=== PATIENT | female | born 1980 | race Hispanic/Latino ===

== ENCOUNTER 2017-08-12 19:46 | Inpatient (IN) | payer OTHER ==
[~2017-08-12] VITALS: Ht 154.9 cm; Wt 51.9 kg
[~2017-08-12 19:46] MED LIST: AZELEX30 GM TOP; BACTRIM DS TAB1 EACH PO; CIPRO500 M1 PO; HALOBETASOL PRO15 G1 TOP; IBUPROFEN600 M1 PO; IBUPROFEN800 M1 PO; MOMETASONE FURO45 G1 TOP; RETIN-A20 GM TOP
--- NOTE | 2017-08-12 20:07 | ED GI/GU/ABDOMINAL COMPLAINT ---
History of Present Illness General Chief Complaint: General Adult Stated Complaint: PT HAS A PAIN ON THE LT SIDE GOING TO RT SIDE Vital Signs & Intake/Output Vital Signs & Intake/Output Vital Signs Date Time Temp Pulse Resp B/P B/P Pulse O2 O2 Flow FiO2 Mean Ox Delivery Rate 08/12 1958 96.9 91 20 102/70 Allergies Coded Allergies: oxycodone (From PERCOCET) (Intermediate, LOWERS BLOOD PRESSURE 12/09/15) nitrofurantoin (N/V/D 01/02/17) Reconcile Medications Azelaic Acid (Azelex) 20 % CREAM..G. 1 JOE TOP BID PRN ECZEMA (Reported) Ciprofloxacin HCl (Cipro) 500 MG TABLET 1 TAB PO BID kidney infection Halobetasol Propionate 0.05 % OINT...G. 1 JOE TOP AD PRN ECZEMA (Reported) Ibuprofen 600 MG TABLET 1 TAB PO TID pain with food Ibuprofen 800 MG TABLET 1 TAB PO TID pain Mometasone Furoate 0.1 % OINT...G. 1 JOE TOP AD PRN ECZEMA (Reported) apply to affected area(s) Tretinoin (Retin-A) 0.025 % CREAM..G. 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
--- NOTE | 2017-08-12 20:48 | ED GI/GU/ABDOMINAL COMPLAINT ---
History of Present Illness General Chief Complaint: General Adult Stated Complaint: PT HAS A PAIN ON THE LT SIDE GOING TO RT SIDE Source: patient, old records Exam Limitations: no limitations Vital Signs & Intake/Output Vital Signs & Intake/Output Vital Signs Date Time Temp Pulse Resp B/P B/P Pulse O2 O2 Flow FiO2 Mean Ox Delivery Rate 08/12 2122 68 18 92/60 100 Room Air 08/12 2120 Room Air 08/12 1958 96.9 91 20 102/70 Allergies Coded Allergies: oxycodone (From PERCOCET) (Intermediate, LOWERS BLOOD PRESSURE 12/09/15) nitrofurantoin (N/V/D 01/02/17) Reconcile Medications Ciprofloxacin HCl (Cipro) 500 MG TABLET 1 TAB PO BID kidney infection Ibuprofen 600 MG TABLET 1 TAB PO TID pain with food Triage Note: PER PT SEEN ON THURSDAY FOR PYELO, SAW DR ARREOLA TODAY AND HE SUGGESTS ME TO BE ADMITTED FOR IV ANTIBIOTICS, NOT FEELING ANY BETTER Triage Nurses Notes Reviewed? yes LMP (ages 10-50): date ([id number]) ? n Is pt currently ? No Onset: Last week Duration: day(s):, constant, continues in ED Timing: recent history Quality/Severity: aching, moderate Location: left flank Radiation: LLQ, RLQ Activities at Onset: none Prior Abdominal Problems: similar symptoms Past Sexual History: Unobtainable at this time No Modifying Factors: none Modifying Factors: Worsens With: urinating. Associated Symptoms: abdominal pain, dysuria, fatigue, loss of appetite, urinary frequency HPI: About 1 week prior to admission patient complains of left flank pain and urinary frequency painful urination anorexia. 5 days prior to admission she was evaluated diagnosed with pyelonephritis discharged with Cipro and Motrin. She does not feel any better with continued symptoms along with congestion and nonproductive cough. She denies fever chills nausea vomiting diarrhea chest pain shortness breath headache rash bleeding. Past History Travel History Traveled to [place] past 21 day No Medical History Any Pertinent Medical History? 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 No Review of Systems Review of Systems Constitutional: Reports: see HPI, malaise. EENTM: Reports: no symptoms. Respiratory: Reports: no symptoms. Cardiovascular: Reports: no symptoms. GI: Reports: no symptoms. Genitourinary: Reports: see HPI, dysuria, frequency, pain. Musculoskeletal: Reports: no symptoms. Skin: Reports: no symptoms. Neurological/Psychological: Reports: no symptoms. Hematologic/Endocrine: Reports: no symptoms. Immunologic/Allergic: Reports: no symptoms. All Other Systems: Reviewed and Negative Physical Exam Physical Exam General Appearance: well developed/nourished, alert, awake, mild distress Head: atraumatic, normal appearance Eyes: Bilateral: normal appearance, PERRL, EOMI, normal inspection. Ears, Nose, Throat, Mouth: hearing grossly normal, moist mucous membrane Neck: normal inspection, supple, full range of motion, normal alignment Respiratory: normal breath sounds, chest non-tender, no respiratory distress, quiet respiration, lungs clear Cardiovascular: regular rate/rhythm, normal peripheral pulses, norml femoral pulses equa Peripheral Pulses: 4+ carotid (R), 4+ carotid (L) Gastrointestinal: normal bowel sounds, soft, non-tender, no organomegaly Back: normal inspection, normal range of motion, no vertebral tenderness Extremities: normal range of motion, no ligament instability Neurologic/Psych: no motor/sensory deficits, awake, alert, oriented x 3, normal gait, normal mood/affect, 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 No Sepsis Present: No Sepsis Focused Exam Completed? No Progress Differential Diagnosis: UTI/pyelo Plan of Care: Orders Procedure Date/time Status Regular Diet 08/13 B Active Pathway - chart 08/12 2142 Active House Staff 08/12 2142 Active Code Status 08/12 2142 Active Intake & Output 08/12 2121 Active Patient Data 08/12 2040 Active OXYGEN SETUP (GEN) 08/12 2032 Active Saline Lock 08/12 2032 Active Admit to inpatient 08/12 2032 Active Vital Signs 06/06 2033 Active Activity/Ambulation 08/12 2032 Active Code Status 08/12 2032 Complete CULTURE,URINE 08/13 2023 Active BLOOD CULTURE 08/13 2023 Active URINE 08/13 2023 Complete URINALYSIS 08/13 2023 Complete LIPASE 08/13 2023 Complete COMPREHENSIVE METABOLIC PANEL 08/13 2023 Complete CBC WITHOUT DIFFERENTIAL 08/13 2023 Complete VTE Mechanical Prophylaxis 08/12 UNK Active Current Medications Sig/Alcides Start time Last Medication Dose Stop Time Status Admin Heparin Sodium 5,000 UNIT Q8 08/12 2199 UNVr (Porcine) Laboratory Tests 08/12/172130: Urinalysis LIGHT H, Urine Color YEL, Urine Clarity CLDY H, Urine pH 6.0, Ur Specific [place] >= 1.030, Urine Protein TRACE H, Urine Ketones NEG, Urine Nitrite NEG, Urine Bilirubin NEG, Urine Urobilinogen 0.2, Ur Leukocyte Esterase TRACE H, Ur Microscopic SEDIMENT EXAMINED, Urine RBC FEW H, Urine WBC 1-3 H, Ur Epithelial Cells MANY H, Urine Bacteria RARE H, Urine Mucus RARE, Urine Hemoglobin NEG, Urine Glucose NEG, Urine Test NEGATIVE 08/12/172045: Anion Gap 11, Estimated GFR > 60, BUN/Creatinine Ratio 11.4, Glucose 84, Calcium 9.0, Total Bilirubin 0.4, AST 201 H, ALT 319 H, Alkaline Phosphatase 272 H, Total Protein 6.8, Albumin 3.2 L, Globulin 3.6, Albumin/Globulin Ratio 0.9 L, Lipase 48, CBC w Diff NO MAN DIFF REQ, RBC 3.78 L, MCV 86.2, MCH 28.7, MCHC 33.3, RDW 16.0 H, MPV 7.7, Gran % 68.3, Lymphocytes % 24.0, Monocytes % 4.6, Eosinophils % 2.8, Basophils % 0.3, Absolute Granulocytes 5.3, Absolute Lymphocytes 1.9, Absolute Monocytes 0.4, Absolute Eosinophils 0.2, Absolute Basophils 0 Microbiology 08/12 2130 URINE ROUT: Urine Culture - RECD 08/13 2103 BLOOD: Blood Culture - RECD 08/12 2045 BLOOD: Blood Culture - RECD Diagnostic Imaging: Viewed by Me: Radiology Read. Discussed w/RAD: Radiology Read. CXR Impression: Unremarkable examination. Initial ED EKG: none Departure Departure Time of Disposition: 2029 Disposition: OTHER PYSCH Condition: Stable Clinical Impression Primary Impression: Pyelonephritis Secondary Impressions: Transaminitis Referrals: Johnathan Arreola MD (PCP/Family) Departure Forms: Customer Survey General Discharge Information Admission Note Spoke With: Unruly Alcala MD Documentation of Exam: Documentation of any treatments & extenuating circumstances including Concerns Regarding Discharge (functional status, medication knowledge or non-compliance, living conditions, etc.) that warrant an admission rather than observation: IV antibiotics follow cultures urology evaluation medication adjustment continuing care discharge planning
[2017-08-12 20:57] LABS: ABSOLUTE BASOPHIL COUNT 0 /CUMM (0.0-0.2); ABSOLUTE EOSINOPHIL COUNT 0.2 /CUMM (0.0-0.7); ABSOLUTE GRANULOCYTE CT 5.3 /CUMM (1.4-6.5); ABSOLUTE LYMPH COUNT 1.9 /CUMM (1.2-3.4); ABSOLUTE MONOCYTE COUNT 0.4 /CUMM (0.10-0.60); BASOPHIL % 0.3 % (0.0-2.0); EOSINOPHIL % 2.8 % (0-5); GRANULOCYTE % 68.3 % (42.2-75.2); HEMATOCRIT 32.6 % (37-47); MEAN CORPUSCULAR HGB 28.7 PG (27.0-31.0); MEAN CORPUSCULAR HGB CONC 33.3 G/DL (33.0-37.0); MEAN CORPUSCULAR VOLUME 86.2 FL (81.0-99.0); MEAN PLATELET VOLUME 7.7 FL (7.4-10.4); PLATELET COUNT 270 /CUMM (130-400); RED BLOOD CELL CT 3.78 /CUMM (4.20-5.40); WHITE BLOOD CELL COUNT 7.8 /CUMM (4.8-10.8)
--- NOTE | 2017-08-12 21:35 | History & Physical ---
Alisa RAMSAY,Micha 08/12/17 2134: General Information and HPI MD Statement: I have seen and personally examined MAEVE ELIZABETH and documented this H&P. The patient is a 37 year old F who presented with a patient stated chief complaint of [pyelonephritis]. Source of Information: patient, old records Exam Limitations: no limitations History of Present Illness: Patient is a 37-year-old female with a PMH significant for myotonic dystrophy, transaminitis, ESBL UTIs and pyelonephritis, who presented to the [facility] ED due to persistent symptoms of pyelonephritis despite treatment with p.o. ciprofloxacin. Her symptoms initially began on 08/07/17 and included left flank pain worsened by movement and walking, urinary frequency with dark urine and anorexia, she presented to the [facility] ED on 08/08/17 and was diagnosed with pyelonephritis on CT and discharged home with a one-month course of ciprofloxacin. She reports no improvement in her symptoms and states that she continues to have significant pain, she describes this pain as a sharp pain of her left flank radiating down to her left leg, she also began having shortness of breath with exertion which she attributes to the pain which worsens with exertion as well. She also developed a productive cough with greenish sputum over the last 23 days. she followed up with her PCP at [facility] today and Dr. Patrick Arreola, and recommended that she come to the ED. she denies any fever, chills, loss of consciousness, lightheadedness, dizziness. Of note, patient reports that she has known transaminitis, this is been worked up extensively as an outpatient without any definitive diagnosis, however she was told that it is believed that this is due to her myotonic dystrophy Allergies/Medications Allergies: Coded Allergies: oxycodone (From PERCOCET) (Intermediate, LOWERS BLOOD PRESSURE 12/09/15) nitrofurantoin (N/V/D 01/02/17) Home Med list Ciprofloxacin HCl (Cipro) 500 MG TABLET 1 TAB PO BID kidney infection Ibuprofen 600 MG TABLET 1 TAB PO TID pain with food Past History Travel History Traveled to [place] past 21 day No Medical History Neurological: migraine EENT: NONE Cardiovascular: NONE Respiratory: NONE Gastrointestinal: NONE Hepatic: transaminitis Renal: UTI'S PYELONEPHRITIS Musculoskeletal: myotonic dystrophy Psychiatric: NONE Endocrine: NONE Blood Disorders: NONE 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 Renal cancer, Onset: 40-50. Psychosocial History Where do you live? Home Who Do You Live With? child Services at Home: None Primary Language: Lithuanian Smoking Status: Current Everyday Smoker ETOH Use: occasional use Illicit Drug Use: denies illicit drug use Living Will? no Functional Ability ADLs Independent: dressing, eating, toileting, bathing. Ambulation: independent IADLs Independent: shopping, housework, finances, food prep, telephone, transportation , medication admin. Review of Systems Review of Systems Constitutional: Denies: chills, fever, malaise. EENTM: Denies: blurred vision, double vision, visual changes. Cardiovascular: Denies: chest pain, orthopena, palpitations, syncope. Respiratory: Reports: cough, short of breath (secondary to pain), sputum production. GI: Reports: nausea. Denies: diarrhea, melena, bloody stool, vomiting. Genitourinary: Reports: frequency. Denies: hematuria, urgency. Musculoskeletal: Reports: no symptoms. Skin: Reports: no symptoms. Neurological/Psychological: Reports: no symptoms. Exam & Diagnostic Data Last 24 Hrs of Vital Signs/I&O Vital Signs Date Time Temp Pulse Resp B/P B/P Pulse O2 O2 Flow FiO2 Mean Ox Delivery Rate 08/12 2122 68 18 92/60 100 Room Air 08/12 2120 Room Air 08/12 1958 96.9 91 20 102/70 Physical Exam General Appearance Alert, Oriented X3, Cooperative, No Acute Distress Skin Temp/Moisture Exam: Warm/Dry HEENT Atraumatic, PERRLA, EOMI, Mucous Membr. moist/pink Cardiovascular Regular Rate, Normal S1, Normal S2, No Murmurs Lungs Clear to Auscultation, Normal Air Movement Abdomen Normal Bowel Sounds, Soft, mild tenderness to palpation of the RLQ and suprapubic region, L sided CVA tenderness Neurological Normal Gait, Normal Speech, Strength at 5/5 X4 Ext, Normal Tone Extremities No Clubbing, No Cyanosis, No Edema Last 24 Hrs of Labs/Eliecer: Laboratory Tests 08/12/172130: Urinalysis LIGHT H, Urine Color YEL, Urine Clarity CLDY H, Urine pH 6.0, Ur Specific [place] >= 1.030, Urine Protein TRACE H, Urine Ketones NEG, Urine Nitrite NEG, Urine Bilirubin NEG, Urine Urobilinogen 0.2, Ur Leukocyte Esterase TRACE H, Ur Microscopic SEDIMENT EXAMINED, Urine RBC FEW H, Urine WBC 1-3 H, Ur Epithelial Cells MANY H, Urine Bacteria RARE H, Urine Mucus RARE, Urine Hemoglobin NEG, Urine Glucose NEG, Urine Test NEGATIVE 08/12/172045: Anion Gap 11, Estimated GFR > 60, BUN/Creatinine Ratio 11.4, Glucose 84, Calcium 9.0, Total Bilirubin 0.4, AST 201 H, ALT 319 H, Alkaline Phosphatase 272 H, Total Protein 6.8, Albumin 3.2 L, Globulin 3.6, Albumin/Globulin Ratio 0.9 L, Lipase 48, CBC w Diff NO MAN DIFF REQ, RBC 3.78 L, MCV 86.2, MCH 28.7, MCHC 33.3, RDW 16.0 H, MPV 7.7, Gran % 68.3, Lymphocytes % 24.0, Monocytes % 4.6, Eosinophils % 2.8, Basophils % 0.3, Absolute Granulocytes 5.3, Absolute Lymphocytes 1.9, Absolute Monocytes 0.4, Absolute Eosinophils 0.2, Absolute Basophils 0 Microbiology 08/12 2130 URINE ROUT: Urine Culture - RECD 08/13 2103 BLOOD: Blood Culture - RECD 08/12 2045 BLOOD: Blood Culture - RECD Diagnostic Data CXR Results No significant abnormality is noted involving the heart, lungs, mediastinum, bony thorax or soft tissues. IMPRESSION: Unremarkable examination. Assessment/Plan Assessment: Patient is a 37-year-old female with a PMH significant for myotonic dystrophy, transaminitis, ESBL UTIs and pyelonephritis, who presented to the [facility] ED due to continued symptoms of pyelonephritis. Her symptoms initially began on 08/07/17 and included left flank pain worsened by movement and walking, and urinary frequency with dark urine, she presented to the [facility] ED on 08/08/17 and was diagnosed with pyelonephritis on CT and discharged home with a one-month course of ciprofloxacin. She reports no improvement in her symptoms and has developed a productive cough with greenish sputum, and mild shortness of breath with exertion which she believes is secondary to her flank pain which is also worsened by exertion. Vital signs on admission: T 96.9, P 91, RR 20, BP 102/70, pulse ox 100% on room air Labs: WBC 7.8, H/H 10.8/32.6, platelets 270, sodium 146, potassium 3.8, chloride 109, CO2 26, BUN 8, creatinine 0.7, glucose 84, AST 201, ALT 319, alk phos 272, albumin 3.2 Urine culture from ED at visit on 08/08 growing E. coli resistant to ampicillin Problem list #Pyelonephritis #Hypernatremia, secondary to poor p.o. intake and dehydration #Transaminitis, chronic problem which has been worked up as an outpatient ability to be secondary to myotonic dystrophy Plan -Admit to general medicine -Patient received IV Unasyn in ED, will IV ceftriaxone for now -CT abdomen and pelvis and renal ultrasound showed no obstruction, will consider nephrology consult if patient fails to improve on IV antibiotics -IV hydration for boarderline BP -Avoid Tylenol and other hepatotoxic medications Diet: Regular diet DVT prophylaxis: Subcutaneous heparin, Alps CODE STATUS: Full code As Ranked By This Provider Problem List: 1. Transaminitis 2. Pyelonephritis 3. Hypotension Core Measures/Misc (11/23) Acute Coronary Syndrome ACS Diagnosis: No Congestive Heart Failure Congestive Heart Failure Diagnosis No Cerebrovascular Accident CVA/TIA Diagnosis: No VTE (View Protocol) VTE Risk Factors Acute Medical Illness No Mechanical VTE Prophylaxis d/t N/A MechProphylax Ordered No VTE Pharm Prophylaxis d/t NA PharmProphylax ordered Sepsis (View protocol) Sepsis Present: No If YES complete Sepsis Event Note If YES complete Sepsis Event Note Mike RAMSAY,Ismail 08/12/17 2209: Core Measures/Misc (11/23) Sepsis (View protocol) If YES complete Sepsis Event Note If YES complete Sepsis Event Note Resident Review Statement Resident Statement: examined this patient, discussed with graduate intern, agreed with graduate intern Other Findings: 37-year-old female with PMHx of pyelonephritis 2/2 extended spectrum beta- lactamase (ESBL), myotonic dystrophy with chronic transaminitis, right ovary resection secondary to large cyst, who presented with a urinary infection symptom for the past week. The patient was seen in ED on August 08, for left flank pain, polyuria, dysuria, and poor appetite. Abdominal CT at that time was suggestive of left sided pyelonephritis. The patient was sent home on ciprofloxacin. Her symptoms did not improve, for which she follows with Dr. Arreola earlier today, her recommended that she visit the ED. The patient reports dry cough that started last Thursday, earlier today the cough became productive of green sputum. Her symptoms asociated with progressive exertional dyspnea. She denies chest pain, palpitation, or chest discomfort. She smoked 1 pack per week. She denies recent travel, or sick contacts. Physical Exam HEENT: PERRLA, EOMI CVS - Nl S1/S2 w/o mgr RESP -CTA BL no additional sounds GI - LUQ and suprapubic tenderness. Negative Ramos sign Assessment: The patient has a history of UTI that was complicated with pyelonephritis in 2016. 4 days ago she presented to the ED with a symptom of UTI, at that time CT abdomen suggested left-sided pyelonephritis. Currently on physical exam she had left flank pain that radiated down the left leg. Urine culture from 4 days ago positive for E. coli pansensitive except for amoxicillin. The patient was given 1 dose of IV Unasyn in the ED. recently she developed symptoms of URI that progressed to cough with one episode of green sputum. Unremarkable CXR, this most likely acute viral bronchitis. Plan: #UTI complicated by pyelonephritis, failed outpatient ciprofloxacin. * Admit to general med floor * Blood Cx X2 and urine Cx * IV bolus followed by IV fluids until tolerated oral intake * Start IV ceftriaxone #Very mild hypernatremia * One fluid bolus * Encourage oral intake * repeat BEP in am #Transaminitis with elevated ALP * That has been on chronic issue secondary to myotonic dystrophy * She had a complete workup done as an outpatient, hepatitis was ruled out. * Negative Ramos sign, negative rt UQ tenderness. * We will repeat LFTs in AM, given the recent worsening. #Cough Most likely secondary to acute bronchitis post URTI: * Chest x-ray is negative * We will continue monitoring for any signs of infection. - Regular diet -DVT PPx: ALPS & Hep SC -FC Fredrick RAMSAY, [facility] 08/12/17 2223: Core Measures/Misc (11/23) Sepsis (View protocol) If YES complete Sepsis Event Note If YES complete Sepsis Event Note Attending MD Review Statement Attending Statement Attending MD Statement: examined this patient, discuss w/resident/PA/MANAGER CHEMICAL, agreed w/resident/PA/MANAGER CHEMICAL, reviewed images, amended to note Attending Assessment/Plan: 37 yo F with h/o eczema, myotonic dystrophy, previous ESBL Ecoli UTI/ pyelonephritis, was seen in ER on August 08 for urinary frequency and left flank pain, diagnosed with UTI/pyelonephritis and was prescribed Cipro which patient has been taking, without much relief in her flank pain or urinary frequency. She has been taking motrin/ ibuprofen without relief. Her PCP asked her to come in for IV antibiotics. She denies dysuria, hematuria or fever/ chills. She reports a poor appetite. No nausea, vomiting or diarrhea. Of note for the past 2 days, she has also developed URI symptoms with congestion and productive cough with dyspnea. She denies any sick contacts. Patient was last admitted to [facility] in Dec 2016 for UTI symptoms, with ESBL Ecoli that was treated with meropenem but all cultures came back negative and antibiotics were discontinued. Vitals: afebrile, HR 60 -90's, BP 102/70 --> 92/60, sats 100% RA. Exam: AAO, thin lady in distress due to flank pain, dry mucosa, Left CVA tenderness+, Chest clear, Heart S1S2 regular, Abd soft, tender in the left lower quadrant, LE: no edema. Labs: WBC 7.8, H/H 10.8/32.6, Plt 270, Na 146, BUN 8, creat 0.7, glucose 84, AST 201, ALT 319, Alk phos 272, lipase 48. UA cloudy, trace protein, trace LE, few RBC, WBC 1-3, rare bacteria. CXR: unremarkable exam. CT abd/pelvis (08/08): mild asymmetric inflammatory changes involving left kidney, can be seen in setting of pyelonephritis. No obtructive renal uropathy. Urine culture (08/08): growing Ecoli. Assessment and plan: 1. Ecoli UTI with acute pyelonephritis 2. Failed outpatient therapy 3. Dehydration 4. Transaminitis in the setting of myotonic dystrophy worsened with recent Cipro use 5. H/o myotonic dystrophy and eczema 6. Normocytic anemia needs workup 7. Acute viral bronchitis - Admit to general medicine - Repeat urine and blood cultures - Check lactate - IV ceftriaxone QD - Aggressive IV hydration - Check urine tox screen - Trend LFTs after IV hydration - Hep panel negative as of 2014 - Avoid NSAIDs - CXR does not reveal a pneumonia - Treat URI symptomatically with mucinex and PRN nebs - Work up anemia iron studies, TSH, free T4, B12, folic acid DVT ppx Lovenox. Full code.
--- NOTE | 2017-08-12 22:00 | Admission Certification ---
Admission Certification Certification Statement - As attending physician, I certify that at the time of - admission, based on clinical presentation, severity of - symptoms, need for further diagnostic testing and - therapeutic interventions, and risk of adverse outcomes - without in-hospital treatment, in my clinical assessment, - this patient requires an acute hospital stay for a minimum - of two nights or longer. I have also considered psychsocial - factors such as support system, advanced age, financial - issues, cognitive issues, and failed out-patient treatments, - past re-admission history, safety of patient, and lack of - compliance as applicable. Specific rationale supporting this admission is: Ecoli UTI/ pyelonephritis, failed outpatient therapy.
--- NOTE | 2017-08-12 22:26 | RADIOLOGY REPORT ---
EXAMINATION: XR CHEST CLINICAL INFORMATION: Cough. Back pain. COMPARISON: None TECHNIQUE: 2 views of the chest were obtained. FINDINGS: No significant abnormality is noted involving the heart, lungs, mediastinum, bony thorax or soft tissues. IMPRESSION: Unremarkable examination.
[2017-08-12 23:20] VITALS: BP 104/59
[2017-08-13 06:38] VITALS: BP 94/50
--- NOTE | 2017-08-13 07:23 | PN- Housestaff ---
José RAMSAY,Marie 08/13/17 0723: Subjective Follow-up For: Pyelonphritis Subjective: Patient was seen and examined today. Patient reports nausea and episode of vomitting today. Patient reports significant left flank pain. Patient denies chest pain, sob, fever/chills, abdominal pain. Reports foul urine odor. Denies dysuria/hematuria. Review of Systems Constitutional: Reports: see HPI. Objective Last 24 Hrs of Vital Signs/I&O Vital Signs Date Time Temp Pulse Resp B/P B/P Pulse O2 O2 Flow FiO2 Mean Ox Delivery Rate 08/13 637 98.4 60 16 94/50 98 Room Air 08/12 2322 99 Room Air 08/13 2319 98.2 70 18 104/59 100 Room Air 08/12 2122 68 18 92/60 100 Room Air 08/12 2120 Room Air 08/12 1958 96.9 91 20 102/70 Intake & Output 08/13 1600 08/13 0800 08/13 0000 Intake Total 260 Output Total 700 Balance -440 Intake, IV 20 Intake, Oral 240 Output, Urine 700 Patient 116 lb Weight Weight Bed scale Measurement Method Physical Exam General Appearance: Alert, Oriented X3, Cooperative, No Acute Distress Skin Temp/Moisture Exam: Warm/Dry HEENT: Atraumatic, PERRLA, EOMI, Mucous Membr. moist/pink Cardiovascular: Regular Rate, Normal S1, Normal S2 Lungs: Clear to Auscultation, Normal Air Movement Abdomen: Normal Bowel Sounds, Soft, mild diffuse abdominal pain with deep palpation, left CVA tenderness Neurological: Normal Gait, Normal Speech, Strength at 5/5 X4 Ext, Normal Tone, Sensation Intact, Cranial Nerves 3-12 NL Extremities: No Clubbing, No Cyanosis, No Edema, Normal Pulses, No Tenderness/ Swelling Current Medications: Current Medications Sig/Alcides Start time Last Medication Dose Route Stop Time Status Admin Acetaminophen 0 .STK-MED ONE 08/12 2048 DC IV Acetaminophen 1,000 MG ONCE ONE 08/12 2029 DC 08/12 IV 08/12 Ampicillin Sodium/ 0 .STK-MED ONE 08/12 2048 DC Sulbactam Sodium .ROUTE Ampicillin Sodium/ 3,000 MG ONCE ONE 08/12 2029 DC 08/12 Sulbactam Sodium IV 08/12 Sodium Chloride 100 ML Ceftriaxone Sodium 1,000 MG DAILY 08/13 0100 AC 08/13 IV 0914 Heparin Sodium 5,000 UNIT Q8 08/12 2200 AC (Porcine) SC Ibuprofen 400 MG Q6P PRN 08/12 2345 DC 08/13 PO 0919 Morphine Sulfate 2 MG Q6P PRN 08/12 2345 AC IV Nicotine 14 MG DAILY 08/13 1300 AC TOP Ondansetron HCl 4 MG ONCE ONE 08/13 1230 DC 08/13 IV 08/13 1231 1229 Ondansetron HCl 4 MG ONCE ONE 08/13 1015 CAN IV 08/13 1016 Ondansetron HCl 4 MG ONCE ONE 08/13 0400 DC 08/13 IV 08/13 0401 0355 Sodium Chloride 500 ML BOLUS ONE 08/12 2245 DC 08/12 IV 08/12 2344 2356 Tramadol HCl 50 MG Q6 08/12 2359 DC 08/13 PO 0636 Tramadol HCl 50 MG Q6 PRN 08/12 2345 AC 08/13 PO 1047 Last 24 Hrs of Lab/Eliecer Results Last 24 Hrs of Labs/Mics: Laboratory Tests 08/13/17 0706: Anion Gap 10, Estimated GFR > 60, BUN/Creatinine Ratio 10.0, Total Bilirubin 0.4 , Direct Bilirubin 0.3, AST 180 H, ALT 300 H, Alkaline Phosphatase 262 H, Total Protein 6.6, Albumin 3.1 L, Vitamin B12 618, Folate 6.0, TSH 2.860, Free T4 1.00, CBC w Diff NO MAN DIFF REQ, RBC 3.86 L, MCV 85.9, MCH 28.6, MCHC 33.3, RDW 16.2 H, MPV 8.3, Gran % 65.5, Lymphocytes % 24.0, Monocytes % 7.4, Eosinophils % 2.7, Basophils % 0.4, Absolute Granulocytes 5.3, Absolute Lymphocytes 2.0, Absolute Monocytes 0.6, Absolute Eosinophils 0.2, Absolute Basophils 0 08/12/171: Urine Opiates Screen < 100, Methadone Screen < 40, Barbiturate Screen < 60, Ur Phencyclidine Scrn < 6.00, Amphetamines Screen < 100, U Benzodiazepines Scrn < 85, Urine Cocaine Screen < 50, Urine Cannabis Screen < 5.00, Urinalysis LIGHT H , Urine Color YEL, Urine Clarity CLDY H, Urine pH 6.0, Ur Specific [employer] >= 1.030, Urine Protein TRACE H, Urine Ketones NEG, Urine Nitrite NEG, Urine Bilirubin NEG, Urine Urobilinogen 0.2, Ur Leukocyte Esterase TRACE H, Ur Microscopic SEDIMENT EXAMINED, Urine RBC FEW H, Urine WBC 1-3 H, Ur Epithelial Cells MANY H, Urine Bacteria RARE H, Urine Mucus RARE, Urine Hemoglobin NEG, Urine Glucose NEG, Urine Test NEGATIVE 08/12/172045: Anion Gap 11, Estimated GFR > 60, BUN/Creatinine Ratio 11.4, Glucose 84, Calcium 9.0, Iron 61, TIBC 383, Ferritin 29.8, Total Bilirubin 0.4, AST 201 H, ALT 319 H, Alkaline Phosphatase 272 H, Total Protein 6.8, Albumin 3.2 L, Globulin 3.6, Albumin/Globulin Ratio 0.9 L, Lipase 48, CBC w Diff NO MAN DIFF REQ, RBC 3.78 L, MCV 86.2, MCH 28.7, MCHC 33.3, RDW 16.0 H, MPV 7.7, Gran % 68.3, Lymphocytes % 24.0, Monocytes % 4.6, Eosinophils % 2.8, Basophils % 0.3, Absolute Granulocytes 5.3, Absolute Lymphocytes 1.9, Absolute Monocytes 0.4, Absolute Eosinophils 0.2, Absolute Basophils 0 Microbiology 08/12 2130 URINE ROUT: Urine Culture - RES 08/13 2103 BLOOD: Blood Culture - RES 08/12 2045 BLOOD: Blood Culture - RES Assessment/Plan Assessment: Patient is a 37-year-old female with a PMH significant for myotonic dystrophy, transaminitis, ESBL UTIs and pyelonephritis, who presented to the [facility] ED due to continued symptoms of pyelonephritis. Her symptoms initially began on 08/07/17 and included left flank pain worsened by movement and walking, and urinary frequency with dark urine, she presented to the [facility] ED on 08/08/17 and was diagnosed with pyelonephritis on CT and discharged home with a one-month course of ciprofloxacin. She reports no improvement in her symptoms and has developed a productive cough with greenish sputum, and mild shortness of breath with exertion which she believes is secondary to her flank pain which is also worsened by exertion. Vital signs on admission: T 96.9, P 91, RR 20, BP 102/70, pulse ox 100% on room air Labs: WBC 7.8, H/H 10.8/32.6, platelets 270, sodium 146, potassium 3.8, chloride 109, CO2 26, BUN 8, creatinine 0.7, glucose 84, AST 201, ALT 319, alk phos 272, albumin 3.2 Urine culture from ED at visit on 08/08 growing E. coli resistant to ampicillin Patient today remained afebrile with no leukocytosis on IV antibiotics. Patient continued to complain of nausea and pain. Patient had one episode of vomitting early in the morning but has been able to tolerate food. Urine and blood cultures thus far have been negative. Patient received ibuprofen this morning. Patient was sent out on a script of high dose ibuprofen- her creatinine while normal has increased form 0.7 to 1.0. Patient's LFTs are elevated however have decreased today. 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 Problems: 1. Pyelonephritis 2. 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 Current Smoker Plan: Admitted to telemetry Continue IV Ceftriaxone Continue to monitor vitals qshift Follow up blood and urine cultures Repeat BEP Avoid nephrotoxic agents including NSAIDs - discontinued ibuprofen today Tramadol and Morphine for pain control Avoid tylenol in setting of transaminitis Nicotine Patch and smoking cessation counseling. DVT PPx: Heparin SQ Code: Full code Diet: Regular diet Problem List: 1. Pyelonephritis Pain Ratin Pain Location: left flank Pain Goal: Pain 7 or less Pain Plan: tramadol morphine Tomorrow's Labs & Rationales: bep Carrillo RAMSAY,Kimberly 08/13/17 1229: Attending MD Review Statement Attending Statement Attending MD Statement: examined this patient, discuss w/resident/PA/WOOD FENCE ERECTOR, agreed w/resident/PA/WOOD FENCE ERECTOR, reviewed EMR data (avail), discussed with nursing, discussed with case mgmt, amended to note Attending Assessment/Plan: Patient seen and examined. Lying comfortably in bed and not in any acute distress. She remains afebrile since admission. She is hemodynamically stable. She reports some nausea. She reports ongoing left flank pain although improved compared to presentation. December she was admitted to the hospital after feeling outpatient treatment for UTI. She was treated for ESBL UTI at that time. It is noted that at that time she was afebrile and no leukocytosis. She was recently in the emergency room and started on ciprofloxacin for urinary tract infection. Urine culture on Thursday grew E. coli sensitive to ciprofloxacin. She presents to the emergency room with ongoing left flank pain. She is fortunately afebrile. Hemodynamically stable. No leukocytosis on her labs. She is growing pansensitive E. coli from urine cultures done few days ago. Urine culture done yesterday is currently negative. On examination she does not appear toxic looking. Only pertinent findings on exam is left costovertebral angle tenderness. Plan: -Continue antibiotic therapy with IV Rocephin. She remains afebrile hemodynamically stable overnight she will be transitioned to amoxicillin to complete 14 days of therapy for her pyelonephritis. -No obstructive disease or anatomical defects noted on CT imaging. No indication for urology evaluation at present. -Transaminases were elevated on admission. There currently. There was elevated during her hospitalization in December. Liver imaging then with ultrasound was negative. Repeat liver imaging with CT abdomen done overnight was negative. Patient carries a history of myotonic dystrophy that can cause transaminitis. Recommend outpatient monitoring by her primary care provider.
[2017-08-13 08:19] LABS: ABSOLUTE BASOPHIL COUNT 0 /CUMM (0.0-0.2); ABSOLUTE EOSINOPHIL COUNT 0.2 /CUMM (0.0-0.7); ABSOLUTE GRANULOCYTE CT 5.3 /CUMM (1.4-6.5); ABSOLUTE MONOCYTE COUNT 0.6 /CUMM (0.10-0.60); BASOPHIL % 0.4 % (0.0-2.0); EOSINOPHIL % 2.7 % (0-5); GRANULOCYTE % 65.5 % (42.2-75.2); HEMATOCRIT 33.2 % (37-47); MEAN CORPUSCULAR HGB 28.6 PG (27.0-31.0); MEAN CORPUSCULAR HGB CONC 33.3 G/DL (33.0-37.0); MEAN CORPUSCULAR VOLUME 85.9 FL (81.0-99.0); MEAN PLATELET VOLUME 8.3 FL (7.4-10.4); PLATELET COUNT 216 /CUMM (130-400); RBC DISTRIBUTION WIDTH 16.2 % (11.5-14.5); RED BLOOD CELL CT 3.86 /CUMM (4.20-5.40); WHITE BLOOD CELL COUNT 8.1 /CUMM (4.8-10.8)
[2017-08-13 15:29] VITALS: BP 92/52
[2017-08-13 22:29] VITALS: BP 88/52
[2017-08-14] VITALS (7 sets, daily range): BP systolic 80–96; BP diastolic 50–60
--- NOTE | 2017-08-14 07:22 | PN- Housestaff ---
José RAMSAY,Marie 08/14/17 0721: Subjective Follow-up For: Pyelonphritis Subjective: Patient was seen and examined today. Patient reports continued left flank pain that is now occassional radiating to right side. Complaisn of diffuse mild abdominal pain. Reports she is dizzy/lightheaded however it has signficantly improved since the day before. No acute events overnight. Review of Systems Constitutional: Reports: see HPI. Objective Last 24 Hrs of Vital Signs/I&O Vital Signs Date Time Temp Pulse Resp B/P B/P Pulse O2 O2 Flow FiO2 Mean Ox Delivery Rate 08/14 0656 98.2 64 16 88/58 97 Room Air 08/14 0219 64 90/54 08/14 0007 90/60 08/13 2229 98.3 88 19 88/52 97 Room Air 08/13 1529 97.7 65 16 92/52 98 Intake & Output 08/14 1600 08 0800 06/08 0000 Intake Total 1000 Output Total 400 Balance -400 1000 Intake, IV 600 Intake, Oral 400 Output, Urine 400 Physical Exam General Appearance: Alert, Oriented X3, Cooperative, No Acute Distress Skin: No Rashes Skin Temp/Moisture Exam: Warm/Dry Sepsis Skin Exam (color): Normal for Ethnicity Other Physical Findings: HEENT: Atraumatic, PERRLA, EOMI, Mucous Membr. moist/pink Cardiovascular: Regular Rate, Normal S1, Normal S2 Lungs: Clear to Auscultation, Normal Air Movement Abdomen: Normal Bowel Sounds, Soft, mild diffuse abdominal pain with deep palpation, left CVA tenderness Neurological: Normal Gait, Normal Speech, Strength at 5/5 X4 Ext, Normal Tone, Sensation Intact, Cranial Nerves 3-12 NL Extremities: No Clubbing, No Cyanosis, No Edema, Normal Pulses, No Tenderness/ Swelling Current Medications: Current Medications Sig/Alcides Start time Last Medication Dose Route Stop Time Status Admin Ceftriaxone Sodium 1,000 MG DAILY 08/13 0100 AC 08/13 IV 0914 Heparin Sodium 5,000 UNIT Q8 08/12 2200 AC 08/14 (Porcine) SC 0550 Ibuprofen 400 MG .STK-MED ONE 08/13 09 DC PO 08/13 0918 Ibuprofen 400 MG Q6P PRN 08/12 2345 DC 08/13 PO 0919 Morphine Sulfate 2 MG Q6P PRN 08/12 2345 DC IV Nicotine 14 MG DAILY 08/13 1300 AC 08/13 TOP 1443 Ondansetron HCl 4 MG Q6P PRN 08/14 0015 AC 08/14 IV 0553 Ondansetron HCl 4 MG .STK-MED ONE 08/13 1804 DC IV 08/13 1805 Ondansetron HCl 4 MG ONCE ONE 08/13 1230 DC 08/13 IV 08/13 1231 1229 Ondansetron HCl 4 MG ONCE ONE 08/13 1015 CAN IV 08/13 1016 Patient Medication 1 ED ONE ONE 08/13 1645 DC 08/13 Teaching ED 08/13 1646 1802 Sodium Chloride 1,000 ML Q6H 08/13 2115 AC 08/14 IV 0548 Sodium Chloride 1,000 ML ONCE ONE 08/13 1815 DC 08/13 IV 08/14 0414 1810 Tramadol HCl 50 MG Q6 PRN 08/12 2345 AC 08/14 PO 0548 Last 24 Hrs of Lab/Eliecer Results Last 24 Hrs of Labs/Mics: Laboratory Tests 08/14/17 0645: Sodium Pending, Potassium Pending, Chloride Pending, Carbon Dioxide Pending, Anion Gap Pending, BUN Pending, Creatinine Pending, BUN/Creatinine Ratio Pending Assessment/Plan Assessment: Patient is a 37-year-old female with a PMH significant for myotonic dystrophy, transaminitis, ESBL UTIs and pyelonephritis, who presented to the [facility] ED due to continued symptoms of pyelonephritis. Her symptoms initially began on 08/07/17 and included left flank pain worsened by movement and walking, and urinary frequency with dark urine, she presented to the [facility] ED on 08/08/17 and was diagnosed with pyelonephritis on CT and discharged home with a one-month course of ciprofloxacin. She reports no improvement in her symptoms and has developed a productive cough with greenish sputum, and mild shortness of breath with exertion which she believes is secondary to her flank pain which is also worsened by exertion. Vital signs on admission: T 96.9, P 91, RR 20, BP 102/70, pulse ox 100% on room air Labs: WBC 7.8, H/H 10.8/32.6, platelets 270, sodium 146, potassium 3.8, chloride 109, CO2 26, BUN 8, creatinine 0.7, glucose 84, AST 201, ALT 319, alk phos 272, albumin 3.2 Urine culture from ED at visit on 08/08 growing E. coli resistant to ampicillin Patient today remained afebrile with no leukocytosis on IV antibiotics. Patient continued to complain pain today. Urine and blood cultures thus far have been negative. Patient's blood pressure remains low despite fluids. Cortisol level was signficantly low at 2.2 this morning. Endocrinology was consutled for evaluation. Patient's cortisol and ACTH were drawn and patient was started on IV Solu-Cortef. Problems: 1. Hypotension- in setting of infection and hypocortisolemia 2. Pyelonephritis 3. 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 Current Smoker Plan: Admitted to telemetry Continue IV Ceftriaxone Continue to monitor vitals qshift Follow up blood and urine cultures Avoid nephrotoxic agents including NSAIDs - discontinued ibuprofen today Tramadol and Morphine for pain control Avoid tylenol in setting of transaminitis Nicotine Patch and smoking cessation counseling. Endocrinology consulted IV Solu-Cortef started today Follow up ACTH and cortisol level DVT PPx: Heparin SQ Code: Full code Diet: Regular diet Problem List: 1. Pyelonephritis 2. Hypotension 3. Transaminitis 4. Hypocortisolemia Pain Ratin Pain Location: left and right flank, abdomen Pain Goal: Pain 7 or less Pain Plan: tramadol PRN Tomorrow's Labs & Rationales: cbc bep Carrillo RAMSAY,Kimberly 08/14/17 1115: Attending Review Statement Attending Statement Attending MD Statement: examined this patient, discuss w/resident/PA/CLOTH EXAMINER MACHINE, agreed w/resident/PA/CLOTH EXAMINER MACHINE, reviewed EMR data (avail), discussed with nursing, discussed with case mgmt, amended to note Attending Assessment/Plan: Patient seen and examined. No issues overnight reported by nursing staff. Remains afebrile and hemodynamically stable. Resting comfortably and not in any acute distress. Yesterday patient complained of dizziness. She was noted to be hypotensive with blood pressure in the 70s systolic. Patient admits to low baseline blood pressure 90 systolic this was much lower at work. She was started on high dehydration. Blood pressure has improved today and is in the 80 systolic. She reports feeling less dizzy today. She remains afebrile. She has no leukocytosis on labs. She continues complain of flank pain. She now reports it is bilateral. On examination she has mild bilateral costovertebral angle tenderness. Abdomen is soft and nontender. Recommendations: -Continue antibiotic therapy with IV Rocephin. -Recommend evaluation by the urology service regarding her bilateral CVA tenderness. She has no evidence of nephrolithiasis on imaging. -Optimize pain control by increasing dosing of tramadol. -Continue IV hydration. Monitor for improvement of blood pressure. Random cortisol level is very low. Obtain endocrine consult. -Noted to be anemic. Check stool guaiac and iron profile. Repeat CBC in a.m. -Repeat LFTs in a.m.
[2017-08-14 08:40] LABS: ABSOLUTE BASOPHIL COUNT 0 /CUMM (0.0-0.2); ABSOLUTE EOSINOPHIL COUNT 0.2 /CUMM (0.0-0.7); ABSOLUTE GRANULOCYTE CT 5.1 /CUMM (1.4-6.5); ABSOLUTE LYMPH COUNT 2.1 /CUMM (1.2-3.4); ABSOLUTE MONOCYTE COUNT 0.3 /CUMM (0.10-0.60); BASOPHIL % 0.3 % (0.0-2.0); EOSINOPHIL % 2.6 % (0-5); GRANULOCYTE % 65.9 % (42.2-75.2); HEMATOCRIT 29.1 % (37-47); MEAN CORPUSCULAR HGB 28.6 PG (27.0-31.0); MEAN CORPUSCULAR HGB CONC 33.3 G/DL (33.0-37.0); MEAN CORPUSCULAR VOLUME 85.8 FL (81.0-99.0); MEAN PLATELET VOLUME 8.3 FL (7.4-10.4); PLATELET COUNT 243 /CUMM (130-400); RBC DISTRIBUTION WIDTH 15.9 % (11.5-14.5); RED BLOOD CELL CT 3.39 /CUMM (4.20-5.40); WHITE BLOOD CELL COUNT 7.7 /CUMM (4.8-10.8)
--- NOTE | 2017-08-14 18:11 | Cons- Endocrinology ---
General Information and HPI Consulting Request Date of Consult: 08/14/17 Requested By: medical team Reason for Consult: lo am cortisol level Source of Information: patient, old records Exam Limitations: no limitations History of Present Illness: This 37-year-old woman came to the emergency room because of left flank pain. She was in the emergency room on 08/08/[address] scan was abnormal with some swelling of the left kidney and perinephric stranding. A presumed diagnosis of pyelonephritis was made. However her urinalysis was negative. Her urine culture grew out approximately 100,000 colonies of E. coli. She was given ciprofloxacin. She returned to the emergency room on 08/12/2017 and was admitted because her pain was worse. This morning the patient had a cortisol level done on blood drawn this morning because her blood pressure was low. A cortisol level came back as 2.2 which is extremely low. In speaking with the patient she was on no medication at home. She did denies taking narcotic pain medication which can affect the pituitary adrenal axis. She takes no [id number] supplements. She has never been told of any adrenal problems before. She denies any thyroid problems. The patient has normal menstrual periods. 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 She is aware of several members of her family that have myotonic dystrophy stating that out of 5 of her siblings have the disorder.. The patient has chronic transaminitis but a cause of this has not been found in the past. Allergies/Medications Allergies: Coded Allergies: oxycodone (From PERCOCET) (Intermediate, LOWERS BLOOD PRESSURE 12/09/15) nitrofurantoin (N/V/D 01/02/17) Home Med List: Ciprofloxacin HCl (Cipro) 500 MG TABLET 1 TAB PO BID kidney infection Ibuprofen 600 MG TABLET 1 TAB PO TID pain with food Current Medications: Current Medications Sig/Alcides Start time Last Medication Dose Route Stop Time Status Admin Ceftriaxone Sodium 1,000 MG DAILY 08/13 0100 AC / IV 0810 Heparin Sodium 5,000 UNIT Q8 08/12 2200 AC 08/14 (Porcine) SC 1337 Hydrocortisone 50 MG Q8 08/14 1600 AC 08/14 Sodium Succinate IV 1718 Morphine Sulfate 2 MG Q6P PRN 08/12 2345 DC IV Nicotine 14 MG DAILY 08/13 1300 08/14 TOP 0810 Ondansetron HCl 4 MG .STK-MED ONE 08/14 1819 DC IV 08/14 1820 Ondansetron HCl 4 MG Q6P PRN 08/14 0015 AC 08/14 IV 1334 Sodium Chloride 1,000 ML Q6H 08/13 2115 AC 08/14 IV 1358 Sodium Chloride 1,000 ML ONCE ONE 08/13 1815 DC 08/13 IV 08/14 0414 1810 Tramadol HCl 50 MG Q4P PRN 08/14 0900 AC 08/14 PO 1717 Tramadol HCl 50 MG Q6 PRN 08/12 2345 DC 08/14 PO 0548 Review of Systems Review of Systems Constitutional: Denies: chills, fever. Cardiovascular: Denies: chest pain. Respiratory: Denies: cough, short of breath. GI: Denies: abdominal pain, nausea, vomiting. Genitourinary: Denies: dysuria. Musculoskeletal: Reports: back pain. Skin: Reports: no symptoms. Comments Left flank pain Past History Travel History Traveled to [place] past 21 day No Medical History Blood Transfusion Hx: No Neurological: migraine EENT: NONE Cardiovascular: NONE Respiratory: NONE Gastrointestinal: NONE Hepatic: transaminitis Renal: UTI'S PYELONEPHRITIS Musculoskeletal: myotonic dystrophy Psychiatric: NONE Endocrine: NONE Blood Disorders: NONE Cancer(s): NONE PROPOSAL DIRECTOR/Reproductive: NONE Surgical History Surgical History: , RIGHT OVARIAN CYSTECTOMY, RIGHT ANKLE SURGERY NOSE SURGERY Family History Relations & Conditions If Any: SISTER FH: breast cancer, Onset: 50-60. Renal cancer, Onset: 40-50. Psychosocial History Where Do You Live? Home Who Do You Live With? child Services at Home: None Primary Language: Kazakh Smoking Status: Current Everyday Smoker ETOH Use: occasional use Illicit Drug Use: denies illicit drug use Living Will? no Functional Ability ADLs Independent: dressing, eating, toileting, bathing. Ambulation: independent IADLs Independent: shopping, housework, finances, food prep, telephone, transportation , medication admin. Exam & Diagnostic Data Last 24 Hrs of Vital Signs/I&O Vital Signs Date Time Temp Pulse Resp B/P B/P Pulse O2 O2 Flow FiO2 Mean Ox Delivery Rate 08/14 1502 98.3 74 16 88/50 97 06/08 1200 98.3 74 16 80/50 97 Room Air 06/08 0800 98.0 76 16 84/50 99 Room Air 06/08 0656 98.2 64 16 88/58 97 Room Air /08 0219 64 90/54 /08 0007 60 08/13 2229 98.3 88 19 88/52 97 Room Air Intake & Output 08/14 1600 /08 0800 08/14 0000 Intake Total 1460 1600 1000 Output Total 1500 1000 Balance -40 600 1000 Intake, IV 1200 600 Intake, Oral 1460 400 400 Output, Urine 1500 1000 Vital Signs Date Time Temp Pulse Resp B/P B/P Pulse O2 O2 Flow FiO2 Mean Ox Delivery Rate 08/14 1502 98.3 74 16 88/50 97 08/14 1200 98.3 74 16 80/50 97 Room Air /08 0800 98.0 76 16 84/50 99 Room Air / 0656 98.2 64 16 88/58 97 Room Air / 0219 64 90/54 08/14 0007 60 08/13 2229 98.3 88 19 88/52 97 Room Air Intake & Output 08/14 1600 /08 0800 08/14 0000 Intake Total 1460 1600 1000 Output Total 1500 1000 Balance -40 600 1000 Intake, IV 1200 600 Intake, Oral 1460 400 400 Output, Urine 1500 1000 Physical Exam General Appearance: alert, awake, comfortable Head: normal appearance Eyes: Bilateral: normal appearance. Neck: normal inspection Respiratory: normal breath sounds Cardiovascular: regular rate/rhythm Gastrointestinal: normal bowel sounds Extremities: normal inspection Labs/Eliecer Results: Laboratory Tests 08/14 08/14 08/14 08/14 1540 1540 0808 0645 Chemistry Sodium (137 - 145 mmol/L) 144 Potassium (3.5 - 5.1 mmol/L) 3.9 Chloride (98 - 107 mmol/L) 111 H Carbon Dioxide (22 - 30 mmol/L) 23 Anion Gap (5 - 16) 9 BUN (7 - 17 mg/dL) 9 Creatinine (0.5 - 1.0 mg/dL) 0.7 Estimated GFR (>60 ml/min) > 60 BUN/Creatinine Ratio (7 - 25 %) 12.9 Cortisol AM Sample (4.46 - 22.7 ug/dL) 2.2 L Cortisol PM Sample (1.7 - 14.1) 3.8 ACTH Stimulation Pending Hematology CBC w Diff NO MAN DIFF REQ WBC (4.8 - 10.8 /CUMM) 7.7 RBC (4.20 - 5.40 /CUMM) 3.39 L Hgb (12.0 - 16.0 G/DL) 9.7 L Hct (37 - 47 %) 29.1 L MCV (81.0 - 99.0 FL) 85.8 MCH (27.0 - 31.0 PG) 28.6 MCHC (33.0 - 37.0 G/DL) 33.3 RDW (11.5 - 14.5 %) 15.9 H Plt Count (130 - 400 /CUMM) 243 MPV (7.4 - 10.4 FL) 8.3 Gran % (42.2 - 75.2 %) 65.9 Lymphocytes % (20.5 - 51.1 %) 26.8 Monocytes % (1.7 - 9.3 %) 4.4 Eosinophils % (0 - 5 %) 2.6 Basophils % (0.0 - 2.0 %) 0.3 Absolute Granulocytes (1.4 - 6.5 /CUMM) 5.1 Absolute Lymphocytes (1.2 - 3.4 /CUMM) 2.1 Absolute Monocytes (0.10 - 0.60 /CUMM) 0.3 Absolute Eosinophils (0.0 - 0.7 /CUMM) 0.2 Absolute Basophils (0.0 - 0.2 /CUMM) 0 08/13 08/12 0706 2131 Chemistry Sodium (137 - 145 mmol/L) 145 Potassium (3.5 - 5.1 mmol/L) 4.0 Chloride (98 - 107 mmol/L) 110 H Carbon Dioxide (22 - 30 mmol/L) 25 Anion Gap (5 - 16) 10 BUN (7 - 17 mg/dL) 10 Creatinine (0.5 - 1.0 mg/dL) 1.0 Estimated GFR (>60 ml/min) > 60 BUN/Creatinine Ratio (7 - 25 %) 10.0 Total Bilirubin (0.2 - 1.3 mg/dL) 0.4 Direct Bilirubin (< 0.4 mg/dL) 0.3 AST (14 - 36 U/L) 180 H ALT (9 - 52 U/L) 300 H Alkaline Phosphatase (<127 U/L) 262 H Total Protein (6.3 - 8.2 g/dL) 6.6 Albumin (3.5 - 5.0 g/dL) 3.1 L Vitamin B12 (239 - 931 pg/mL) 618 Folate (2.76 - 20.0 ng/mL) 6.0 TSH (0.270 - 4.200 uIU/mL) 2.860 Free T4 (0.79 - 2.35 ng/dL) 1.00 Hematology CBC w Diff NO MAN DIFF REQ WBC (4.8 - 10.8 /CUMM) 8.1 RBC (4.20 - 5.40 /CUMM) 3.86 L Hgb (12.0 - 16.0 G/DL) 11.0 L Hct (37 - 47 %) 33.2 L MCV (81.0 - 99.0 FL) 85.9 MCH (27.0 - 31.0 PG) 28.6 MCHC (33.0 - 37.0 G/DL) 33.3 RDW (11.5 - 14.5 %) 16.2 H Plt Count (130 - 400 /CUMM) 216 MPV (7.4 - 10.4 FL) 8.3 Gran % (42.2 - 75.2 %) 65.5 Lymphocytes % (20.5 - 51.1 %) 24.0 Monocytes % (1.7 - 9.3 %) 7.4 Eosinophils % (0 - 5 %) 2.7 Basophils % (0.0 - 2.0 %) 0.4 Absolute Granulocytes (1.4 - 6.5 /CUMM) 5.3 Absolute Lymphocytes (1.2 - 3.4 /CUMM) 2.0 Absolute Monocytes (0.10 - 0.60 /CUMM) 0.6 Absolute Eosinophils (0.0 - 0.7 /CUMM) 0.2 Absolute Basophils (0.0 - 0.2 /CUMM) 0 Toxicology Urine Opiates Screen (>2000 NG/ML) < 100 Methadone Screen (>300 NG/ML) < 40 Barbiturate Screen (>200 NG/ML) < 60 Ur Phencyclidine Scrn (>25 NG/ML) < 6.00 Amphetamines Screen (>1000 NG/ML) < 100 U Benzodiazepines Scrn (>200 NG/ML) < 85 Urine Cocaine Screen (>300 NG/ML) < 50 Urine Cannabis Screen (>50 NG/ML) < 5.00 Urines Urinalysis LIGHT H Urine Color (YEL,AMB,STR) YEL Urine Clarity (CLEAR) CLDY H Urine pH (5.0 - 8.0) 6.0 Ur Specific [place] (1.001 - 1.035) >= 1.030 Urine Protein (NEG,<30 MG/DL) TRACE H Urine Ketones (NEG) NEG Urine Nitrite (NEG) NEG Urine Bilirubin (NEG) NEG Urine Urobilinogen (0.1 - 1.0 EU/dl) 0.2 Ur Leukocyte Esterase (NEG) TRACE H Ur Microscopic SEDIMENT EXAMINED Urine RBC (0 - 5 /HPF) FEW H Urine WBC (0 - 2 /HPF) 1-3 H Ur Epithelial Cells (NONE,FEW) MANY H Urine Bacteria (NEG/NONE) RARE H Urine Mucus (FEW,NONE) RARE Urine Hemoglobin (NEG) NEG Urine Glucose (N MG/DL) NEG Urine Test NEGATIVE 08/12 2045 Chemistry Sodium (137 - 145 mmol/L) 146 H Potassium (3.5 - 5.1 mmol/L) 3.8 Chloride (98 - 107 mmol/L) 109 H Carbon Dioxide (22 - 30 mmol/L) 26 Anion Gap (5 - 16) 11 BUN (7 - 17 mg/dL) 8 Creatinine (0.5 - 1.0 mg/dL) 0.7 Estimated GFR (>60 ml/min) > 60 BUN/Creatinine Ratio (7 - 25 %) 11.4 Glucose (65 - 99 mg/dL) 84 Calcium (8.4 - 10.2 mg/dL) 9.0 Iron (37 - 170 ug/dL) 61 TIBC (265 - 497 ug/dL) 383 Ferritin (6.24 - 137 ng/mL) 29.8 Total Bilirubin (0.2 - 1.3 mg/dL) 0.4 AST (14 - 36 U/L) 201 H ALT (9 - 52 U/L) 319 H Alkaline Phosphatase (<127 U/L) 272 H Total Protein (6.3 - 8.2 g/dL) 6.8 Albumin (3.5 - 5.0 g/dL) 3.2 L Globulin (1.9 - 4.2 gm/dL) 3.6 Albumin/Globulin Ratio (1.1 - 2.2 %) 0.9 L Lipase (23 - 300 U/L) 48 Hematology CBC w Diff NO MAN DIFF REQ WBC (4.8 - 10.8 /CUMM) 7.8 RBC (4.20 - 5.40 /CUMM) 3.78 L Hgb (12.0 - 16.0 G/DL) 10.8 L Hct (37 - 47 %) 32.6 L MCV (81.0 - 99.0 FL) 86.2 MCH (27.0 - 31.0 PG) 28.7 MCHC (33.0 - 37.0 G/DL) 33.3 RDW (11.5 - 14.5 %) 16.0 H Plt Count (130 - 400 /CUMM) 270 MPV (7.4 - 10.4 FL) 7.7 Gran % (42.2 - 75.2 %) 68.3 Lymphocytes % (20.5 - 51.1 %) 24.0 Monocytes % (1.7 - 9.3 %) 4.6 Eosinophils % (0 - 5 %) 2.8 Basophils % (0.0 - 2.0 %) 0.3 Absolute Granulocytes (1.4 - 6.5 /CUMM) 5.3 Absolute Lymphocytes (1.2 - 3.4 /CUMM) 1.9 Absolute Monocytes (0.10 - 0.60 /CUMM) 0.4 Absolute Eosinophils (0.0 - 0.7 /CUMM) 0.2 Absolute Basophils (0.0 - 0.2 /CUMM) 0 Current Medications Sig/Alcides Start time Last Medication Dose Route Stop Time Status Admin Ceftriaxone Sodium 1,000 MG DAILY 08/13 0100 AC 08/14 IV 0810 Heparin Sodium 5,000 UNIT Q8 08/12 2200 AC 08/14 (Porcine) SC 1337 Hydrocortisone 50 MG Q8 08/14 1600 AC 08/14 Sodium Succinate IV 1718 Morphine Sulfate 2 MG Q6P PRN 08/12 2345 DC IV Nicotine 14 MG DAILY 08/13 1300 AC 08/14 TOP 0810 Ondansetron HCl 4 MG .STK-MED ONE 08/14 1819 DC IV 08/14 1820 Ondansetron HCl 4 MG Q6P PRN 08/14 0015 AC 08/14 IV 1334 Sodium Chloride 1,000 ML Q6H 08/13 2115 AC 08/14 IV 1358 Sodium Chloride 1,000 ML ONCE ONE 08/13 1815 DC 08/13 IV 08/14 0414 1810 Tramadol HCl 50 MG Q4P PRN 08/14 0900 AC 08/14 PO 1717 Tramadol HCl 50 MG Q6 PRN 08/12 2345 DC 08/14 PO 0548 Assessment/Plan Assessment/Plan This patient has presented with a very low cortisol level this morning of 2.0. An a.m. cortisol of less than 3 should be diagnostic of adrenal insufficiency. The patient always has a blood pressure that is borderline low. However she felt pressure in the hospital was lower than usual. She does have symptoms of dizziness and lightheadedness. The reason for the adrenal insufficiency is not clear. We repeated a p.m. cortisol and is now 3.6. ACTH level has been sent out and is pending. The patient has not been taking a lot of narcotic pain medications as far as we know. She is on tramadol however. There are some cases of tramadol induced adrenal insufficiency. For now we have placed the patient on 50 mg of hydrocortisone every 8 hours. We should monitor her fingerstick blood sugars every 8 hours to make sure that her sugars arer not increasing secondary to steroid therapy. In addition I would taper the patient off tramadol and use Tylenol to manage her pain. Patient's last dose of Solu-Cortef 50 mg IV should be tonight. Thereafter discontinue the Solu-Cortef. Tomorrow a.m. we can give her dexamethasone 1 mg in the morning. In the afternoon tomorrow we can do a Cortrosyn stimulation test. We can measure her cortisol before the test. Then we need to inject 1 ampoule which is 0.25 mg of Cortrosyn IV bolus and flush it in. One hour after the Cortrosyn bolus we should remeasure the patient's cortisol level. Consult Acknowledgment - Thank you for your consult request.
[2017-08-15 06:20] VITALS: BP 98/58
--- NOTE | 2017-08-15 08:00 | PN- Housestaff ---
Subjective Follow-up For: Pyleonephritis Cortisol insufficiency Subjective: Seen and examiend at bedside Reports pain in the left flank pain radiating down, mild dizziness/ lightheadedness with ambulation. Knows about hormonal test today. Review of Systems Constitutional: Reports: see HPI. Objective Last 24 Hrs of Vital Signs/I&O Vital Signs Date Time Temp Pulse Resp B/P B/P Pulse O2 O2 Flow FiO2 Mean Ox Delivery Rate 08/16 619 97.5 66 18 98/58 97 Room Air 08/14 2000 98.1 61 18 96/55 99 Room Air 08/14 1502 98.3 74 16 88/50 97 / 1200 98.3 74 16 80/50 97 Room Air Intake & Output 08/15 1600 08/15 0800 08/15 0000 Intake Total 2400 Output Total 1700 Balance 700 Intake, IV 2000 Intake, Oral 400 Output, Urine 1700 Physical Exam General Appearance: Alert, Oriented X3, Cooperative Skin: No Rashes, No Breakdown Skin Temp/Moisture Exam: Warm/Dry HEENT: Atraumatic, PERRLA, EOMI Neck: Supple Cardiovascular: Normal S1, Normal S2, No Murmurs Lungs: Clear to Auscultation, Normal Air Movement Abdomen: Normal Bowel Sounds, Soft, No Tenderness Neurological: Normal Speech Extremities: No Clubbing, No Cyanosis, No Edema Current Medications: Current Medications Sig/Alcides Start time Last Medication Dose Route Stop Time Status Admin Acetaminophen 650 MG Q6-PRN PRN 08/15 0515 DC PO Ceftriaxone Sodium 1,000 MG DAILY 08/13 0100 08/14 IV 0810 Dexamethasone 1 MG ONE ONE 08/15 0700 DC 08/15 PO 08/15 0701 0554 Heparin Sodium 5,000 UNIT Q8 08/12 2200 08/15 (Porcine) SC 0554 Hydrocortisone 50 MG Q8 08/14 1600 DC 08/14 Sodium Succinate IV 08/14 2300 2320 Nicotine 14 MG DAILY 08/13 1300 08/14 TOP 0810 Ondansetron HCl 4 MG .STK-MED ONE 08/15 0034 DC IM 08/15 0035 Ondansetron HCl 4 MG .STK-MED ONE 08/14 1819 DC IV 08/14 1820 Ondansetron HCl 4 MG Q6P PRN 08/14 0015 08/15 IV 0050 Sodium Chloride 1,000 ML Q6H 08/13 2114 AC 08/15 IV 0451 Tramadol HCl 50 MG Q6-PRN PRN 08/14 2014 AC 08/15 PO 0554 Tramadol HCl 50 MG Q4P PRN 08/14 0900 DC 08/14 PO 1717 Last 24 Hrs of Lab/Eliecer Results Last 24 Hrs of Labs/Mics: Laboratory Tests 08/14/17 1540: Cortisol PM Sample 3.8 08/14/17 1540: ACTH Stimulation Pending Assessment/Plan Assessment: Patient is a 37-year-old female with a PMH significant for myotonic dystrophy, transaminitis, ESBL UTIs and pyelonephritis, who presented to the [facility] ED due to continued symptoms of pyelonephritis. Her symptoms initially began on 08/07/17 and included left flank pain worsened by movement and walking, and urinary frequency with dark urine, she presented to the [facility] ED on 08/08/17 and was diagnosed with pyelonephritis on CT and discharged home with a one-month course of ciprofloxacin. She reports no improvement in her symptoms and has developed a productive cough with greenish sputum, and mild shortness of breath with exertion which she believes is secondary to her flank pain which is also worsened by exertion. Vital signs on admission: T 96.9, P 91, RR 20, BP 102/70, pulse ox 100% on room air Labs: WBC 7.8, H/H 10.8/32.6, platelets 270, sodium 146, potassium 3.8, chloride 109, CO2 26, BUN 8, creatinine 0.7, glucose 84, AST 201, ALT 319, alk phos 272, albumin 3.2 Urine culture from ED at visit on 08/08 growing E. coli resistant to ampicillin Patient today remained afebrile with no leukocytosis on IV antibiotics. Patient continued to complain pain today. Urine and blood cultures thus far have been negative. Patient's blood pressure remains low despite fluids. Cortisol level was signficantly low at 2.2 this morning. Endocrinology was consutled for evaluation. Patient's cortisol and ACTH were drawn and patient was started on IV Solu-Cortef. Problem list 1. Persistent Hypotension- adrenal insufficiency 2. Pyelonephritis 3. 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 Current Smoker Plan: Pyelnonephritis Urine cultures from August 08 grew E.coli sensitive for cepahrlosporins/ bactrim/cipro. Day - 4 of ceftrixone. Can transition to oral abx for a total of 14days. Avoiding nephrotoxic agents including NSAIDs. Adrenal insufficiency AM cortisol on 08/14/17 shows a cortisol level of 2.2. Not on narcotics, steroids, supplements, normal thyroid function. Related to tramadol or myotonic dystrophy - unclear at the moment. ON IV FLUIDS. Received several hydrocortisone doses. Today morning she got 1mg dexamethasone, will undergo cosyntropin test later which differentiates peripheral vs central cause. Active smoking Nicotine Patch and smoking cessation counseling. DVT PPx: Heparin SQ Code: Full code Diet: Regular diet Problem List: 1. UTI (urinary tract infection) 2. Hypotension 3. Transaminitis 4. Hypocortisolemia Pain Ratin Pain Location: left flank Pain Goal: Pain 4 or less Pain Plan: tylenol rpn Tomorrow's Labs & Rationales: none
--- NOTE | 2017-08-15 08:28 | PN- Endocrinology ---
Assessment/Plan Endoscopy Assessment: The patient feels a little better this morning. Flank pain is less. She may also feel a little stronger after receiving the steroids. Her blood pressure has improved. Plan: The patient received dexamethasone 1 mg by mouth this morning. We will do a Cortrosyn stimulation test later today. The procedure is outlined in my note from yesterday. We should wait for this afternoon before doing this test in order to ensure that the hydrocortisone dosages that she had yesterday do not interfere. Subjective Subjective: Feels improved Review of Systems Constitutional: Denies: chills, fever. Cardiovascular: Denies: chest pain. Respiratory: Denies: cough, short of breath. Gastrointestinal: Denies: abdominal pain, nausea. Objective Last 24 Hrs of Vital Signs/I&O Vital Signs Date Time Temp Pulse Resp B/P B/P Pulse O2 O2 Flow FiO2 Mean Ox Delivery Rate 08/16 619 97.5 66 18 98/58 97 Room Air 08/15 1999 98.1 61 18 96/55 99 Room Air 08/14 1502 98.3 74 16 88/50 97 08/14 1200 98.3 74 16 80/50 97 Room Air Intake & Output 08/15 1600 08/15 0800 08/15 0000 Intake Total 2400 2400 Output Total 1100 1700 Balance 1300 700 Intake, IV 1999 1999 Intake, Oral 400 400 Output, Urine 1100 1700 Vital Signs Date Time Temp Pulse Resp B/P B/P Pulse O2 O2 Flow FiO2 Mean Ox Delivery Rate 08/16 619 97.5 66 18 98/58 97 Room Air 08/15 1999 98.1 61 18 96/55 99 Room Air 08/14 1502 98.3 74 16 88/50 97 08/14 1200 98.3 74 16 80/50 97 Room Air Intake & Output 08/15 1600 08/15 0800 08/15 0000 Intake Total 2400 2400 Output Total 1100 1700 Balance 1300 700 Intake, IV 1999 1999 Intake, Oral 400 400 Output, Urine 1100 1700 Physical Exam General Appearance: alert, awake, comfortable Head: normal appearance Neck: normal inspection Respiratory: normal breath sounds Cardiovascular: regular rate/rhythm Abdomen: normal bowel sounds Extremities: normal inspection Current Medications: Current Medications Sig/Alcides Start time Last Medication Dose Route Stop Time Status Admin Acetaminophen 650 MG Q6-PRN PRN 08/15 514 DC PO Ceftriaxone Sodium 1,000 MG DAILY 08/13 0100 AC 08/14 IV 0810 Dexamethasone 1 MG ONE ONE 08/15 0700 DC 08/15 PO 08/15 0701 0554 Heparin Sodium 5,000 UNIT Q8 08/12 2200 AC 08/15 (Porcine) SC 0554 Hydrocortisone 50 MG Q8 08/14 1600 DC 08/14 Sodium Succinate IV 08/14 2300 2320 Nicotine 14 MG DAILY 08/13 1300 AC 08/14 TOP 0810 Ondansetron HCl 4 MG .STK-MED ONE 08/14 1819 DC IV 08/14 1820 Ondansetron HCl 4 MG Q6P PRN 08/14 0015 AC 08/15 IV 0050 Sodium Chloride 1,000 ML Q6H 08/13 2115 AC 08/15 IV 0451 Tramadol HCl 50 MG Q6-PRN PRN 08/14 2015 AC 08/15 PO 0554 Tramadol HCl 50 MG Q4P PRN 08/14 0900 DC 08/14 PO 1717 Tramadol HCl 50 MG Q6 PRN 08/12 2345 DC 08/14 PO 0548 Results Pertinent Lab/Eliecer Results: Laboratory Tests 08/14 08/14 08/14 08/14 1540 1540 0808 0645 Chemistry Sodium (137 - 145 mmol/L) 144 Potassium (3.5 - 5.1 mmol/L) 3.9 Chloride (98 - 107 mmol/L) 111 H Carbon Dioxide (22 - 30 mmol/L) 23 Anion Gap (5 - 16) 9 BUN (7 - 17 mg/dL) 9 Creatinine (0.5 - 1.0 mg/dL) 0.7 Estimated GFR (>60 ml/min) > 60 BUN/Creatinine Ratio (7 - 25 %) 12.9 Cortisol AM Sample (4.46 - 22.7 ug/dL) 2.2 L Cortisol PM Sample (1.7 - 14.1) 3.8 ACTH Stimulation Pending Hematology CBC w Diff NO MAN DIFF REQ WBC (4.8 - 10.8 /CUMM) 7.7 RBC (4.20 - 5.40 /CUMM) 3.39 L Hgb (12.0 - 16.0 G/DL) 9.7 L Hct (37 - 47 %) 29.1 L MCV (81.0 - 99.0 FL) 85.8 MCH (27.0 - 31.0 PG) 28.6 MCHC (33.0 - 37.0 G/DL) 33.3 RDW (11.5 - 14.5 %) 15.9 H Plt Count (130 - 400 /CUMM) 243 MPV (7.4 - 10.4 FL) 8.3 Gran % (42.2 - 75.2 %) 65.9 Lymphocytes % (20.5 - 51.1 %) 26.8 Monocytes % (1.7 - 9.3 %) 4.4 Eosinophils % (0 - 5 %) 2.6 Basophils % (0.0 - 2.0 %) 0.3 Absolute Granulocytes (1.4 - 6.5 /CUMM) 5.1 Absolute Lymphocytes (1.2 - 3.4 /CUMM) 2.1 Absolute Monocytes (0.10 - 0.60 /CUMM) 0.3 Absolute Eosinophils (0.0 - 0.7 /CUMM) 0.2 Absolute Basophils (0.0 - 0.2 /CUMM) 0
--- NOTE | 2017-08-15 08:42 | PN- Att Addend ---
Attending Addendum Attending Brief Note Patient seen and examined. No issues overnight reported by nursing staff. Remains afebrile and hemodynamically stable. Resting comfortably. She reports she still has bilateral flank pain but admits it has improved compared to presentation. Denies nausea. Denies vomiting.Vital Signs Date Time Temp Pulse Resp B/P B/P Pulse O2 O2 Flow FiO2 Mean Ox Delivery Rate 08/15 0620 97.5 66 18 98/58 97 Room Air 08/14 2000 98.1 61 18 96/55 99 Room Air 08/14 1502 98.3 74 16 88/50 97 / 1200 98.3 74 16 80/50 97 Room Air General appearance: Well-developed and not in any acute distress. HEENT: Anicteric, no pallor, pupils equal and reactive. Neck: Supple with no jugular venous distention. Heart: S1-S2 regular with no audible murmur. Lungs: Adequate and symmetric air entry bilaterally with no added sounds. Abdomen: Nondistended with normal bowel sounds. Soft, nontender with no palpable masses. Extremities: No pedal edema. No cyanosis. Skin: Intact Laboratory Tests 08/14/17 1540: Cortisol PM Sample 3.8 08/14/17 1540: ACTH Stimulation Pending Problems: 1. Pyelonephritis 2. Bilateral flank pain 3. Hypotension 4. Adrenal insufficiency 5. Chronic transaminitis 6. Myotonic dystrophy Plan: -She remains afebrile. Hemodynamically stable. Transitioned to amoxicillin and complete total of 14 days of treatment including her current antibiotic course. -CT imaging was suggestive of pyelonephritis in the left kidney. She presented with left CVA tenderness. She is now complaining of mild bilateral flank pain. No evidence of nephrolithiasis noted on imaging. Urology consultation placed. -Discontinue tramadol and obtain pain control with Tylenol 650 mg orally every 6 hours as needed pain. -She reports feeling up with the gastroenterology service in the outpatient and has been worked up for her transaminitis. Repeat LFTs in a.m. If levels continue to trend downwards she can follow-up in the outpatient setting. If her transaminase levels are rising GI consultation should be obtained here in the hospital. -Endocrinology follow-up appreciated. Patient scheduled for cosyntropin stim vision test later on today. Will discontinue tramadol as this is currently the only likely etiology of her cortisol suppression.
--- NOTE | 2017-08-15 09:08 | Cons- Urology ---
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 She presented to the ER on 08/08/17 with L flank pain. U/A at the time was not impressive for UTI but a urine culture grew out E. coli. CT at that ER visit showed mild L perinephric stranding and she was started on cipro for a presumed L pyelonephritis. She returned to the ER on 08/12/17 with continued L flank pain and no improvement. At that time she was admitted. Urine appeared uremarkable and there was no leukocytosis. She was found to have a very low cortisol level c/w adrenal insufficiency and is now being followed by endocrinology. Cortisol replacement was started yesterday and she feels a little better today. Allergies/Medications Allergies: Coded Allergies: oxycodone (From PERCOCET) (Intermediate, LOWERS BLOOD PRESSURE 12/09/15) nitrofurantoin (N/V/D 01/02/17) Home Med List: Ciprofloxacin HCl (Cipro) 500 MG TABLET 1 TAB PO BID kidney infection Ibuprofen 600 MG TABLET 1 TAB PO TID pain with food Current Medications: Current Medications Sig/Alcides Start time Last Medication Dose Route Stop Time Status Admin Acetaminophen 650 MG Q6-PRN PRN 08/15 0515 DC PO Ceftriaxone Sodium 1,000 MG DAILY 08/13 0100 AC 08/14 IV 0810 Dexamethasone 1 MG ONE ONE 08/15 0700 DC 08/15 PO 08/15 0701 0554 Heparin Sodium 5,000 UNIT Q8 08/12 2200 AC 08/15 (Porcine) SC 0554 Hydrocortisone 50 MG Q8 08/14 1600 DC 08/14 Sodium Succinate IV 08/14 2300 2320 Nicotine 14 MG DAILY 08/13 1300 AC 08/14 TOP 0810 Ondansetron HCl 4 MG .STK-MED ONE 08/15 0034 DC IM 08/15 0035 Ondansetron HCl 4 MG .STK-MED ONE 08/14 1819 DC IV 08/14 1820 Ondansetron HCl 4 MG Q6P PRN 08/14 0015 AC 08/15 IV 0050 Sodium Chloride 1,000 ML Q6H 08/13 211 AC 08/15 IV 0451 Tramadol HCl 50 MG Q6-PRN PRN 08/14 2014 AC 08/15 PO 0554 Tramadol HCl 50 MG Q4P PRN 08/14 09 DC 08/14 PO 1717 Past History Medical History Blood Transfusion Hx: No Neurological: migraine EENT: NONE Cardiovascular: NONE Respiratory: NONE Gastrointestinal: NONE Hepatic: transaminitis Renal: UTI'S PYELONEPHRITIS Musculoskeletal: myotonic dystrophy Psychiatric: NONE Endocrine: NONE Blood Disorders: NONE Cancer(s): 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 Renal cancer, Onset: 40-50. Psychosocial History Where Do You Live? Home Who Do You Live With? child Services at Home: None Primary Language: Setswana Smoking Status: Current Everyday Smoker ETOH Use: occasional use Illicit Drug Use: denies illicit drug use Living Will? no Functional Ability ADLs Independent: dressing, eating, toileting, bathing. Ambulation: independent IADLs Independent: shopping, housework, finances, food prep, telephone, transportation , medication admin. Exam & Diagnostic Data Vital Signs and I&O Vital Signs Date Time Temp Pulse Resp B/P B/P Pulse O2 O2 Flow FiO2 Mean Ox Delivery Rate 08/16 619 97.5 66 18 98/58 97 Room Air 08/14 2000 98.1 61 18 96/55 99 Room Air 08/14 1502 98.3 74 16 88/50 97 08/14 1200 98.3 74 16 80/50 97 Room Air Intake & Output 08/15 1600 08/15 0800 08/15 0000 08/14 1600 08/14 0800 08/14 0000 Intake Total 2400 2400 1460 1600 1000 Output Total 1100 1700 1500 1000 Balance 1300 700 -40 600 1000 Intake, IV 1999 1999 1200 600 Intake, Oral 987 403 7708 400 400 Output, Urine 1100 1700 1500 1000 No acute distress Back: positive for L CVA tenderness Abd: tattoo present. Soft and non tender. and laparoscopy scar well healed Laboratory Tests 08/14 08/14 1540 1540 Chemistry Cortisol PM Sample (1.7 - 14.1) 3.[address] images reviewed. Mild perinephric stranding on L. No hydronephrosis. No urinary stones. Urinary tract anatomically normal Assessment/Plan Assessment/Plan Imp: 1. L flank pain. Not typical of only pyelonehritis as pain from urologic source ususally does not radiate down the leg. She clearly had a positive urine culture one week ago and mild stranding around L kidney on CT scan. Would be reasonable to treat for a total of 2 weeks with abx for a presumed L pyelnephritis diagnosed on 08/08/17 Plan: 1. Would treat for 1 more week with abx. Would considering changing back to a po antibiotic such as cipro Consult Acknowledgment - Thank you for your consult request.
[2017-08-15 09:31] VITALS: BP 94/60
[2017-08-15 13:34] VITALS: BP 90/60
[2017-08-15 18:00] VITALS: BP 113/73
[2017-08-15 22:11] VITALS: BP 110/66
[2017-08-16] VITALS (7 sets, daily range): BP systolic 100–126; BP diastolic 59–81
--- NOTE | 2017-08-16 07:41 | PN- Housestaff ---
José RAMSAY,Marie 08/16/17 0740: Subjective Follow-up For: Pyleonephritis Cortisol insufficiency Subjective: Patient was seen and examined today. Patient reports continued abdominal and flank pain that has improved significant since Thursday. Reports feeling bloated. Patient denies any lightheadedness or dizziness. Denies fever/chills, n/v/c/d, hematuria/dysuria. No acute events overnight. Review of Systems Constitutional: Reports: see HPI. Objective Last 24 Hrs of Vital Signs/I&O Vital Signs Date Time Temp Pulse Resp B/P B/P Pulse O2 O2 Flow FiO2 Mean Ox Delivery Rate 08/16 0544 97.6 65 20 104/64 96 Room Air 08/16 0202 98.0 60 20 117/73 97 Room Air 08/15 2211 98.8 58 18 110/66 99 08/15 1800 98.0 51 18 113/73 94 Room Air 08/15 1334 97.1 66 20 90/60 96 / 0931 96.4 64 18 94/60 Intake & Output 08/16 1600 08/16 0800 08/16 0000 Intake Total 1950 950 Output Total 700 900 Balance 1250 50 Intake, IV 1750 750 Intake, Oral 200 200 Output, Urine 700 900 Physical Exam General Appearance: Alert, Cooperative, No Acute Distress Skin Temp/Moisture Exam: Warm/Dry Sepsis Skin Exam (color): Normal for Ethnicity HEENT: Atraumatic, Mucous Membr. moist/pink Cardiovascular: Regular Rate, Normal S1, Normal S2 Lungs: Clear to Auscultation, Normal Air Movement Abdomen: Normal Bowel Sounds, Soft, No Tenderness Neurological: Normal Speech, Cranial Nerves 3-12 NL Extremities: No Clubbing, No Cyanosis, No Edema, Normal Pulses, No Tenderness/ Swelling Vascular: Normal Pulses, Pulses Symmetrical Current Medications: Current Medications Sig/Alcides Start time Last Medication Dose Route Stop Time Status Admin Acetaminophen 650 MG Q8P PRN 08/15 1015 AC 08/15 PO 2024 Ceftriaxone Sodium 1,000 MG DAILY 08/13 010 DC 08/15 IV 903 Ciprofloxacin 500 MG BID 08/16 899 AC PO 08/19 2058 Heparin Sodium 5,000 UNIT Q8 08/12 2200 AC 08/16 (Porcine) SC 0639 Nicotine 14 MG DAILY 08/13 1300 AC 08/15 TOP 0904 Ondansetron HCl 4 MG Q6P PRN 08/14 0015 AC 08/15 IV 0050 Sodium Chloride 1,000 ML Q6H 08/13 2115 08/16 IV 0643 Tramadol HCl 50 MG Q6-PRN PRN 08/14 2014 DC 08/15 PO 0554 Last 24 Hrs of Lab/Eliecer Results Last 24 Hrs of Labs/Mics: Laboratory Tests 08/16/17 0715: Sodium Pending, Potassium Pending, Chloride Pending, Carbon Dioxide Pending, Anion Gap Pending, BUN Pending, Creatinine Pending, BUN/Creatinine Ratio Pending , Total Bilirubin Pending, Direct Bilirubin Pending, AST Pending, ALT Pending, Alkaline Phosphatase Pending, Total Protein Pending, Albumin Pending, CBC w Diff Pending, WBC Pending, RBC Pending, Hgb Pending, Hct Pending, MCV Pending, MCH Pending, MCHC Pending, RDW Pending, Plt Count Pending, MPV Pending Assessment/Plan Assessment: Patient is a 37-year-old female with a PMH significant for myotonic dystrophy, transaminitis, ESBL UTIs and pyelonephritis, who presented to the [facility] ED due to continued symptoms of pyelonephritis. Her symptoms initially began on 08/07/17 and included left flank pain worsened by movement and walking, and urinary frequency with dark urine, she presented to the [facility] ED on 08/08/17 and was diagnosed with pyelonephritis on CT and discharged home with a one-month course of ciprofloxacin. She reports no improvement in her symptoms and has developed a productive cough with greenish sputum, and mild shortness of breath with exertion which she believes is secondary to her flank pain which is also worsened by exertion. Vital signs on admission: T 96.9, P 91, RR 20, BP 102/70, pulse ox 100% on room air Labs: WBC 7.8, H/H 10.8/32.6, platelets 270, sodium 146, potassium 3.8, chloride 109, CO2 26, BUN 8, creatinine 0.7, glucose 84, AST 201, ALT 319, alk phos 272, albumin 3.2 Urine culture from ED at visit on 08/08 growing E. coli resistant to ampicillin Patient today remained afebrile with no leukocytosis on IV antibiotics. Patient continued to complain pain today. Urine and blood cultures thus far have been negative. Patient's blood pressure remains low despite fluids. Cortisol level was signficantly low at 2.2 this morning. Endocrinology was consutled for evaluation. Patient's cortisol and ACTH were drawn and patient was started on IV Solu-Cortef. Problem list 1. Persistent Hypotension- adrenal insufficiency 2. Pyelonephritis 3. 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 Current Smoker Plan: Pyelnonephritis Urine cultures from August 08 grew E.coli sensitive for cepahrlosporins/ bactrim/cipro. Day - 4 of ceftrixone. Can transition to oral abx for a total of 14days. Avoiding nephrotoxic agents including NSAIDs. - - transitioned to amoxicillin today - tylenol for flank pain Adrenal insufficiency AM cortisol on 08/14/17 shows a cortisol level of 2.2. Not on narcotics, steroids, supplements, normal thyroid function. Related to tramadol or myotonic dystrophy - unclear at the moment. Received several hydrocortisone doses. Patient did not receive her cosyntropin test yesterday. Blood pressure is holding in the 90s-100s systolic. Patient's symptoms have resolved. - IV fluids discontinued - endocrinology following - cosyntropin test ordered - 0.25mg IV x 1 with IV flush - cortisol level 1 hour after cosyntropin administered Active smoking Nicotine Patch and smoking cessation counseling. Chronically elevated transaminases Continues to have elevated LFTs. Reportedly runs in her family with members who have myotonic dystrophy. DVT PPx: Heparin SQ Code: Full code Diet: Regular diet Problem List: 1. Pyelonephritis 2. Hypocortisolemia Pain Ratin Pain Location: flank/abdominal pain Pain Goal: Pain 4 or less Pain Plan: tylenol PRN Tomorrow's Labs & Rationales: JULIANA Vizcaino MD,Kimberly 08/16/17 1039: Attending MD Review Statement Attending Statement Attending MD Statement: examined this patient, discuss w/resident/PA/TABLET TECHNICIAN, agreed w/resident/PA/TABLET TECHNICIAN, reviewed EMR data (avail), discussed with nursing, amended to note Attending Assessment/Plan: Patient seen and examined. No issues overnight reported by nursing staff. Remains afebrile and hemodynamically stable. Reports mild cough nonproductive. Denies chest pain or shortness of breath. Reports left flank pain has improved. Denies dysuria. She does complain of generalized body aches. On examination she has adequate entry bilaterally with no added sounds. Abdomen soft and nontender. No CVA tenderness. Laboratory data shows mildly elevated sodium level. Likely iatrogenic from fluid resuscitation. Recommendations: -Discontinue IV fluids. -Blood pressure in the 90s to low 100 is acceptable given her small stature. -Please follow-up endocrinology recommendations regarding the cosyntropin solution test today. -Change antibiotic therapy to amoxicillin and complete 14 days of therapy. -LFTs remain elevated, likely related to her myotonic dystrophy. She reports being tested back in the after her sister's 3 children were diagnosed with myotonic dystrophy. Some of her children have also tested positive for myotonic dystrophy. Her LFTs have been chronically elevated following the diagnosis.
[2017-08-16 08:33] LABS: ABSOLUTE BASOPHIL COUNT 0 /CUMM (0.0-0.2); ABSOLUTE EOSINOPHIL COUNT 0.1 /CUMM (0.0-0.7); ABSOLUTE GRANULOCYTE CT 2.6 /CUMM (1.4-6.5); ABSOLUTE LYMPH COUNT 3.2 /CUMM (1.2-3.4); ABSOLUTE MONOCYTE COUNT 0.3 /CUMM (0.10-0.60); BASOPHIL % 0.5 % (0.0-2.0); EOSINOPHIL % 1.2 % (0-5); GRANULOCYTE % 41.9 % (42.2-75.2); HEMATOCRIT 27.3 % (37-47); MEAN CORPUSCULAR HGB 28.4 PG (27.0-31.0); MEAN CORPUSCULAR HGB CONC 33.1 G/DL (33.0-37.0); PLATELET COUNT 258 /CUMM (130-400); RBC DISTRIBUTION WIDTH 16.9 % (11.5-14.5); RED BLOOD CELL CT 3.17 /CUMM (4.20-5.40); WHITE BLOOD CELL COUNT 6.1 /CUMM (4.8-10.8)
--- NOTE | 2017-08-16 08:56 | PN- Urology ---
Subjective Subjective: No acute distress. Still with some mild L flank pain Objective Vital Signs and I&Os Vital Signs Date Time Temp Pulse Resp B/P B/P Pulse O2 O2 Flow FiO2 Mean Ox Delivery Rate 08/16 0544 97.6 65 20 104/64 96 Room Air 08/16 0202 98.0 60 20 117/73 97 Room Air 08/15 2211 98.8 58 18 110/66 99 / 1800 98.0 51 18 113/73 94 Room Air 08/15 1334 97.1 66 20 90/60 96 08/15 0931 96.4 64 18 94/60 Intake & Output 08/16 1600 08/16 0800 08/16 0000 08/15 1600 08/15 0800 08/15 0000 Intake Total 4339 979 7852 2400 2400 Output Total 204 352 2851 1100 1700 Balance 1250 50 1110 1300 700 Intake, IV 5907 218 9413 2000 2000 Intake, Oral 200 200 560 400 400 Output, Urine 003 549 5458 1100 1700 Assessment/Plan Assessment/Plan Imp: 1. L flank pain. Etiology not entirely clear. Residual of L pyelonephritis may be a contributing factor Plan: 1. Agree with pain management with tylenol 2. Complete 6 more days of po cipro 3. Told patient that we would be happy to follow her as outpatient after discharge
--- NOTE | 2017-08-16 09:12 | PN- Endocrinology ---
Assessment/Plan Endoscopy Assessment: Patient still has some left flank pain. She is eating well. Overall blood pressure has been in a good range and she is afebrile. Unfortunately the Cortrosyn stimulation test did not get done yesterday as planned. Plan: The patient's adrenal function needs to be reevaluated today. I would add a cortisol level to the morning blood work that was already drawn. In addition we need to do the Cortrosyn stimulation test. We should give her 1 ampule of Cortrosyn IV bolus and flush it in. Thereafter we need to draw a cortisol level 1 hour after the IV bolus of the synthetic ACTH (Cortrosyn). Subjective Subjective: Has some discomfort in her back Review of Systems Constitutional: Denies: chills, fever. Cardiovascular: Denies: chest pain. Gastrointestinal: Denies: nausea, vomiting. Skin: Reports: no symptoms. Objective Last 24 Hrs of Vital Signs/I&O Vital Signs Date Time Temp Pulse Resp B/P B/P Pulse O2 O2 Flow FiO2 Mean Ox Delivery Rate 08/16 0544 97.6 65 20 104/64 96 Room Air 08/16 0202 98.0 60 20 117/73 97 Room Air 08/15 2211 98.8 58 18 110/66 99 08/15 1800 98.0 51 18 113/73 94 Room Air 08/15 1334 97.1 66 20 90/60 96 08/15 0931 96.4 64 18 94/60 Intake & Output 08/16 1600 08/16 0800 08/16 0000 Intake Total 1950 950 Output Total 700 900 Balance 1250 50 Intake, IV 1750 750 Intake, Oral 200 200 Output, Urine 700 900 Vital Signs Date Time Temp Pulse Resp B/P B/P Pulse O2 O2 Flow FiO2 Mean Ox Delivery Rate 08/16 0544 97.6 65 20 104/64 96 Room Air 08/16 0202 98.0 60 20 117/73 97 Room Air 08/15 2211 98.8 58 18 110/66 99 08/15 1800 98.0 51 18 113/73 94 Room Air 08/15 1334 97.1 66 20 90/60 96 / 0931 96.4 64 18 94/60 Intake & Output /10 1600 10 0800 0610 0000 Intake Total 1950 950 Output Total 700 900 Balance 1250 50 Intake, IV 1750 750 Intake, Oral 200 200 Output, Urine 700 900 Physical Exam General Appearance: alert, awake, comfortable Neck: normal inspection Respiratory: normal breath sounds Cardiovascular: regular rate/rhythm Abdomen: normal bowel sounds, soft Current Medications: Current Medications Sig/Alcides Start time Last Medication Dose Route Stop Time Status Admin Acetaminophen 650 MG Q8P PRN 08/15 1015 AC 08/15 PO 2024 Ceftriaxone Sodium 1,000 MG DAILY 08/13 0100 DC 08/15 IV 0904 Ciprofloxacin 500 MG BID 08/16 09 AC 08/16 PO 08/1942 Heparin Sodium 5,000 UNIT Q8 08/12 2200 AC 08/16 (Porcine) SC 0639 Nicotine 14 MG DAILY 08/13 1300 AC 08/16 TOP 0842 Ondansetron HCl 4 MG Q6P PRN 08/14 0015 AC 08/15 IV 0050 Sodium Chloride 1,000 ML Q6H 08/13 211 AC 08/16 IV 0643 Tramadol HCl 50 MG Q6-PRN PRN 08/14 2014 DC 08/15 PO 0554 Results Pertinent Lab/Eliecer Results: Laboratory Tests 08/16 08/14 08/14 0715 1540 1540 Chemistry Sodium (137 - 145 mmol/L) 147 H Potassium (3.5 - 5.1 mmol/L) 3.7 Chloride (98 - 107 mmol/L) 118 H Carbon Dioxide (22 - 30 mmol/L) 23 Anion Gap (5 - 16) 6 BUN (7 - 17 mg/dL) 2 L Creatinine (0.5 - 1.0 mg/dL) 0.5 Estimated GFR (>60 ml/min) > 60 BUN/Creatinine Ratio (7 - 25 %) 4.0 L Total Bilirubin (0.2 - 1.3 mg/dL) 0.2 Direct Bilirubin (< 0.4 mg/dL) 0.2 AST (14 - 36 U/L) 311 H ALT (9 - 52 U/L) 394 H Alkaline Phosphatase (<127 U/L) 253 H Total Protein (6.3 - 8.2 g/dL) 5.5 L Albumin (3.5 - 5.0 g/dL) 2.5 L Cortisol AM Sample (4.46 - 22.7 ug/dL) Pending Cortisol PM Sample (1.7 - 14.1) 3.8 ACTH Stimulation Pending Hematology CBC w Diff NO MAN DIFF REQ WBC (4.8 - 10.8 /CUMM) 6.1 RBC (4.20 - 5.40 /CUMM) 3.17 L Hgb (12.0 - 16.0 G/DL) 9.0 L Hct (37 - 47 %) 27.3 L MCV (81.0 - 99.0 FL) 86.0 MCH (27.0 - 31.0 PG) 28.4 MCHC (33.0 - 37.0 G/DL) 33.1 RDW (11.5 - 14.5 %) 16.9 H Plt Count (130 - 400 /CUMM) 258 MPV (7.4 - 10.4 FL) 9.0 Gran % (42.2 - 75.2 %) 41.9 L Lymphocytes % (20.5 - 51.1 %) 52.0 H Monocytes % (1.7 - 9.3 %) 4.4 Eosinophils % (0 - 5 %) 1.2 Basophils % (0.0 - 2.0 %) 0.5 Absolute Granulocytes (1.4 - 6.5 /CUMM) 2.6 Absolute Lymphocytes (1.2 - 3.4 /CUMM) 3.2 Absolute Monocytes (0.10 - 0.60 /CUMM) 0.3 Absolute Eosinophils (0.0 - 0.7 /CUMM) 0.1 Absolute Basophils (0.0 - 0.2 /CUMM) 0
[2017-08-17 06:00] VITALS: BP 128/66; BP 94/62
--- NOTE | 2017-08-17 07:50 | PN- Endocrinology ---
Assessment/Plan Endoscopy Assessment: The patient has less back and flank pain. Yesterday we restarted her adrenal function. Her cortisol level at 7:15 AM was only 0.7 mcg per 100 mL. The stimulated cortisol 1 hour after the intravenous Cortrosyn was 10.1. This is an abnormal response. The result should be greater than 18. This would confirm that the patient does have adrenal insufficiency. Plan: Suggest begin hydrocortisone 15 mg in the a.m. before breakfast and 5 mg in the p.m. before dinner. We will need to study the patient further as an outpatient. The patient's ACTH level that was drawn on August 14 is pending. We should also measure a 21 hydroxylase antibody level and an aldosterone level. We will also need to look at the patient's pituitary function. She has normal menstrual periods which is also always a good sign. Her thyroid function seems normal. I would order a prolactin level. Subjective Subjective: Back pain is somewhat less Review of Systems Constitutional: Denies: chills, fever. Cardiovascular: Denies: chest pain. Gastrointestinal: Denies: nausea, vomiting. Skin: Reports: no symptoms. Objective Last 24 Hrs of Vital Signs/I&O Vital Signs Date Time Temp Pulse Resp B/P B/P Pulse O2 O2 Flow FiO2 Mean Ox Delivery Rate 08/17 06 98.3 58 14 94/62 98 Room Air 08/16 2200 98.6 69 18 106/59 99 08/16 1800 98.4 70 18 108/59 98 08/16 1351 98.6 88 20 100/60 98 08/16 1120 126/81 08/16 1119 97.4 68 20 126/81 98 08/16 0800 Room Air Intake & Output 08/17 0800 08/17 0000 08/16 1600 Intake Total 200 400 360 Output Total 400 Balance 200 400 -40 Intake, Oral 200 400 360 Output, Urine 400 Physical Exam General Appearance: alert, awake, comfortable Head: normal appearance Neck: normal inspection Respiratory: normal breath sounds Cardiovascular: regular rate/rhythm Abdomen: normal bowel sounds Extremities: normal inspection Current Medications: Current Medications Sig/Alcides Start time Last Medication Dose Route Stop Time Status Admin Acetaminophen 650 MG .STK-MED ONE 08/16 2030 DC PO 08/16 203 Acetaminophen 650 MG .STK-MED ONE 08/16 1111 DC PO 08/16 1112 Acetaminophen 650 MG Q8P PRN 08/15 1015 AC 08/17 PO 0559 Amoxicillin 250 MG TID 08/16 1400 AC 08/16 PO 2034 Ciprofloxacin 500 MG BID 08/16 0900 DC 08/16 PO 08/199 0842 Cosyntropin 0.25 MG ONE ONE 08/16 0930 DC 08/16 IV 08/16 0931 1103 Heparin Sodium 5,000 UNIT Q8 08/12 2200 AC 08/17 (Porcine) SC 0557 Nicotine 14 MG DAILY 08/13 1300 AC 08/16 TOP 0842 Ondansetron HCl 4 MG .STK-MED ONE 08/16 1053 DC IM 08/16 1054 Ondansetron HCl 4 MG Q6P PRN 08/14 0015 AC 08/16 IV 1102 Sodium Chloride 1,000 ML Q6H 08/13 2115 DC 08/16 IV 0643 Results Pertinent Lab/Eliecer Results: Laboratory Tests 08/17 0608/16 0655 0655 1230 Chemistry Sodium Pending Potassium Pending Chloride Pending Carbon Dioxide Pending Anion Gap Pending BUN Pending Creatinine Pending BUN/Creatinine Ratio Pending Creatine Kinase Cancelled Pending Cortisol PM Sample (1.7 - 14.1) 10.1 08/16 0715 Chemistry Sodium (137 - 145 mmol/L) 147 H Potassium (3.5 - 5.1 mmol/L) 3.7 Chloride (98 - 107 mmol/L) 118 H Carbon Dioxide (22 - 30 mmol/L) 23 Anion Gap (5 - 16) 6 BUN (7 - 17 mg/dL) 2 L Creatinine (0.5 - 1.0 mg/dL) 0.5 Estimated GFR (>60 ml/min) > 60 BUN/Creatinine Ratio (7 - 25 %) 4.0 L Total Bilirubin (0.2 - 1.3 mg/dL) 0.2 Direct Bilirubin (< 0.4 mg/dL) 0.2 AST (14 - 36 U/L) 311 H ALT (9 - 52 U/L) 394 H Alkaline Phosphatase (<127 U/L) 253 H Total Protein (6.3 - 8.2 g/dL) 5.5 L Albumin (3.5 - 5.0 g/dL) 2.5 L Cortisol AM Sample (4.46 - 22.7 ug/dL) 0.7 L Hematology CBC w Diff NO MAN DIFF REQ WBC (4.8 - 10.8 /CUMM) 6.1 RBC (4.20 - 5.40 /CUMM) 3.17 L Hgb (12.0 - 16.0 G/DL) 9.0 L Hct (37 - 47 %) 27.3 L MCV (81.0 - 99.0 FL) 86.0 MCH (27.0 - 31.0 PG) 28.4 MCHC (33.0 - 37.0 G/DL) 33.1 RDW (11.5 - 14.5 %) 16.9 H Plt Count (130 - 400 /CUMM) 258 MPV (7.4 - 10.4 FL) 9.0 Gran % (42.2 - 75.2 %) 41.9 L Lymphocytes % (20.5 - 51.1 %) 52.0 H Monocytes % (1.7 - 9.3 %) 4.4 Eosinophils % (0 - 5 %) 1.2 Basophils % (0.0 - 2.0 %) 0.5 Absolute Granulocytes (1.4 - 6.5 /CUMM) 2.6 Absolute Lymphocytes (1.2 - 3.4 /CUMM) 3.2 Absolute Monocytes (0.10 - 0.60 /CUMM) 0.3 Absolute Eosinophils (0.0 - 0.7 /CUMM) 0.1 Absolute Basophils (0.0 - 0.2 /CUMM) 0
--- NOTE | 2017-08-17 09:07 | PN- Housestaff ---
José RAMSAY,Marie 08/17/17 0906: Subjective Follow-up For: Pyleonephritis Cortisol insufficiency Subjective: Patient was seen and examined today. Patient states she feels much better today. Reports mild abdominal pain associated with her period. Patient denies any other complaints and feels ready to go home. No acute events overnight. Review of Systems Constitutional: Reports: see HPI. Objective Last 24 Hrs of Vital Signs/I&O Vital Signs Date Time Temp Pulse Resp B/P B/P Pulse O2 O2 Flow FiO2 Mean Ox Delivery Rate 08/17 06 98.3 58 14 94/62 98 Room Air 08/16 2200 98.6 69 18 106/59 99 08/16 1800 98.4 70 18 108/59 98 Intake & Output 08/17 1600 08/17 0800 08/17 0000 Intake Total 200 400 Output Total Balance 200 400 Intake, Oral 200 400 Patient 114 lb Weight Physical Exam General Appearance: Alert, Cooperative, No Acute Distress Other Physical Findings: HEENT: Atraumatic, Mucous Membr. moist/pink Cardiovascular: Regular Rate, Normal S1, Normal S2 Lungs: Clear to Auscultation, Normal Air Movement Abdomen: Normal Bowel Sounds, Soft, No Tenderness Neurological: Normal Speech, Cranial Nerves 3-12 NL Extremities: No Clubbing, No Cyanosis, No Edema, Normal Pulses, No Tenderness/ Swelling Vascular: Normal Pulses, Pulses Symmetrical Assessment/Plan Assessment: Patient is a 37-year-old female with a PMH significant for myotonic dystrophy, transaminitis, ESBL UTIs and pyelonephritis, who presented to the [facility] ED due to continued symptoms of pyelonephritis. Her symptoms initially began on 08/07/17 and included left flank pain worsened by movement and walking, and urinary frequency with dark urine, she presented to the [facility] ED on 08/08/17 and was diagnosed with pyelonephritis on CT and discharged home with a one-month course of ciprofloxacin. She reports no improvement in her symptoms and has developed a productive cough with greenish sputum, and mild shortness of breath with exertion which she believes is secondary to her flank pain which is also worsened by exertion. Vital signs on admission: T 96.9, P 91, RR 20, BP 102/70, pulse ox 100% on room air Labs: WBC 7.8, H/H 10.8/32.6, platelets 270, sodium 146, potassium 3.8, chloride 109, CO2 26, BUN 8, creatinine 0.7, glucose 84, AST 201, ALT 319, alk phos 272, albumin 3.2 Urine culture from ED at visit on 08/08 growing E. coli resistant to ampicillin Patient today remained afebrile on antibiotics. Patient's abdominal pain appears to be much better. Patient had a cortosyn stim test which was abnormally low. Patient has a primary adrenal insufficiency however etiology is unclear at this point. Patient will be sent home on cortisol and follow up with endocrinology. Problem list 1. Adrenal insufficiency 2. Pyelonephritis 3. 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 Current Smoker Plan: Pyelnonephritis Urine cultures from August 08 grew E.coli sensitive for cepahrlosporins/bactrim/ cipro. Avoiding nephrotoxic agents including NSAIDs. - continue amoxicillin for 5 more days for a total of 14 days of antibiotic therapy. - tylenol for flank pain Adrenal insufficiency AM cortisol on 08/14/17 shows a cortisol level of 2.2. Not on narcotics,steroids, supplements, normal thyroid function. Related to tramadol or myotonic dystrophy - unclear at the moment. Received several hydrocortisone doses. Blood pressure is holding in the 90s-100s systolic. Patient's symptoms have resolved. Cosyntropin test ordered - 0.25mg IV x 1 with IV flush revealed primary insufficiency. Unclear of the etiology. CT scan which was done earlier for evaluation of pyelonephritis revealed normal adrenal anatomy. - continue hydrocoritsone 15mg in AM and 5mg PM daily - follow up with endocrinology Active smoking Nicotine Patch and smoking cessation counseling. Chronically elevated transaminases Continues to have elevated LFTs. Reportedly runs in her family with members who have myotonic dystrophy. DVT PPx: Heparin SQ Code: Full code Diet: Regular diet Problem List: 1. Pyelonephritis 2. Hypocortisolemia Pain Ratin Pain Location: abdomen Pain Goal: Pain 4 or less Pain Plan: tylenol PRN Tomorrow's Labs & Rationales: none - discharged home today Kimberly Vizcaino MD 08/17/17 1116: Attending Review Statement Attending Statement Attending Statement: examined this patient, discuss w/resident/PA/[employer] FIELD COORDINATOR, agreed w/resident/PA/[employer] FIELD COORDINATOR, reviewed EMR data (avail), discussed with nursing, discussed with case mgmt, amended to note Attending Assessment/Plan: Patient seen and examined. No issues overnight reported by nursing staff. Remains afebrile and hemodynamically stable. Resting comfortably and not in any acute distress. Denies nausea vomiting. Flank pain has improved significantly compared to presentation. Blood pressure is acceptable. Patient did not have a normal rise in her cortisol level after administration of cosyntropin. This was confirmed the presence of adrenal insufficiency. In view of this she will continue on hydrocortisone in the outpatient setting. The outpatient setting she will need measurement of aldosterone levels to further evaluate adrenal function. She is having normal menstrual periods. Patient will be following up with the endocrinology service as an outpatient. She is medically stable to be discharged home today. She will complete her antibiotic course in the outpatient setting. Potassium levels are mildly low today. She will receive oral supplementation before being discharged.
[2017-08-17] MEDS ORDERED: NICOTINE PATCH1 EAC2 TOP ×2 (09:08→11:22)
--- NOTE | 2017-08-17 09:10 | Patient Discharge Instructions ---
Discharge Instructions General Discharge Information You were seen/treated for: Pyelonephritis Low cortisol level Special Instructions: 1. Follow up with your pcp within 1 week of discharge 2. Follow up with your endocrinolgist, Dr. Philippe. You have been provided a referral. 3. Follow up with urology outpatient as needed 4. Please note your medications changes: - stop taking ciprofloxacin - complete the full course of amoxicillin - start taking hydrocortisone as prescribed (15mg tab in the morning and 5mg tab at bedtime) - famotidine (pepcid) for reflux Diet Continue normal diet: Yes Acute Coronary Syndrome Inclusion Criteria At DC or during hospital stay patient has or had the following: ACS DIAGNOSIS No Discharge Core Measures Meds if any: Prescribed or Continued at Discharge Meds if any: NOT Prescribed or Continued at Discharge Congestive Heart Failure Inclusion Criteria At DC or during hospital stay patient has or had the following: CHF DIAGNOSIS No Discharge Core Measures Meds if any: Prescribed or Continued at Discharge Meds if any: NOT Prescribed or Continued at Discharge Cerebrovascular accident Inclusion Criteria At DC or during hospital stay patient has or had the following: CVA/TIA Diagnosis No Discharge Core Measures Meds if any: Prescribed or Continued at Discharge Meds if any: NOT Prescribed or Continued at Discharge Venous thromboembolism Inclusion Criteria VTE Diagnosis No VTE Type NONE VTE Confirmed by (Test) NONE Discharge Core Measures - Per Current guidelines, there needs to be overlap - treatment for the first 5 days of Warfarin therapy. - If discharged on Warfarin prior to 5 days of - overlap therapy, the patient will need to be - assessed for post discharge needs including - *Post discharge parental anticoagulation - *Warfarin and/or parental anticoagulation education - *Follow up date to check INR post discharge At least 5 days overlap therapy as Inpatient No Meds if any: Prescribed or Continued at Discharge Note: Overlap Therapy is Warfarin and Anticoagulant Meds if any: NOT Prescribed or Continued at Discharge
[2017-08-17] MEDS ORDERED: AMOXICILLIN250 M3 PO ×2 (10:48→11:22)
[2017-08-17] MEDS ORDERED: HYDROCORTISONE10 M2 PO ×4 (10:58→11:22)
[2017-08-17] MEDS ORDERED: PEPCID20 M1 PO (11:33)
--- NOTE | 2017-08-17 17:35 | Discharge Summary ---
Visit Information Visit Dates Admission Date: 08/12/17 Discharge Date: 08/17/17 Hospital Course Course Attending Physician: Kimberly Vizcaino MD Primary Care Physician: Johnathan Arreola MD Allergies: Coded Allergies: oxycodone (From PERCOCET) (Intermediate, LOWERS BLOOD PRESSURE 12/09/15) nitrofurantoin (N/V/D 01/02/17) Discharge Instructions Medications at Discharge Discharge Medications: Stop taking the following medications: Ciprofloxacin HCl (Cipro) 500 MG TABLET ORAL TWICE DAILY Qty = 14 Ibuprofen (Ibuprofen) 600 MG TABLET ORAL THREE TIMES DAILY Qty = 30 Start taking the following new medications: Hydrocortisone (Hydrocortisone) 10 MG TABLET 1.5 Tablet ORAL DAILY Qty = 45 No Refills Instructions: Please take as instructed and follow up with the creative art director. Comments: Last Taken: 08/17/17 Time: 1130AM Hydrocortisone (Hydrocortisone) 10 MG TABLET 0.5 Tablet ORAL AT BEDTIME Qty = 30 No Refills Instructions: Please take as instructed. Comments: NOT GIVEN Amoxicillin (Amoxicillin) 250 MG CAPSULE 250 Milligram ORAL THREE TIMES DAILY Qty = 14 No Refills Instructions: Take 1 table every 8 hours until completed Please take the full course as prescribed. Comments: Last Taken: 08/17/17 Time: 831am Nicotine (Nicotine Patch) 14 MG/24 HOUR PATCH.TD24 1 Patch On the skin DAILY Qty = 30 No Refills Comments: Last Taken: 08/17/17 Time: 832am Famotidine (Pepcid) 20 MG TABLET 1 Tablet ORAL TWICE DAILY Qty = 60 No Refills Comments: NEW MEDICATION
== END 2017-08-17 11:51 | DRG 463 ==
LOC: ERH 19:46 → 2NA 20:33 → ERHI 20:33 → ENRESERV 21:11 → ENTRNSPT 22:16 → EDTRNSPT 22:23 → EDTRNSPTSTS 22:23 → 2NB 22:27 → CMPTRNSPT 22:42 → 2NA 08-13 01:50 → ENPENDDIS 08-17 11:18 → 2NA 08-17 11:51
PROVIDERS: Emergency Medicine; Internal Medicine; Student in an Organized Health Care Education/Training Program
DX: N10 Acute pyelonephritis (principal); B96.20 Unspecified Escherichia coli [E. coli] as the cause of diseases classified elsewhere; J20.8 Acute bronchitis due to other specified organisms; E86.0 Dehydration; G71.11 Myotonic muscular dystrophy; R74.0 Nonspecific elevation of levels of transaminase and lactic acid dehydrogenase [LDH]; E87.0 Hyperosmolality and hypernatremia; Z88.5 Allergy status to narcotic agent; Z88.8 Allergy status to other drugs, medicaments and biological substances; I95.9 Hypotension, unspecified; E27.40 Unspecified adrenocortical insufficiency; F17.210 Nicotine dependence, cigarettes, uncomplicated
CPT/HCPCS: 2NAP; 2NBSP; 36592; 71046; 80307; 81001; 81025; 82436; 87040; 87086; J0131; J0696; J0834; J1644; J1720; J2405